=== PATIENT | male | born 1950 | race Caucasian/White ===

== ENCOUNTER 2018-04-27 16:08 | Inpatient (IN) ==
[2018-04-27] MEDS ORDERED: NS 1,000 ML IV ONE (16:42)
[2018-04-27] MEDS ORDERED: ATIVAN IV ONE ×2 (16:43→21:25)
--- NOTE | 2018-04-27 16:57 | Diag Imaging Result Doc PS360 ---
EXAM: CT HEAD W/O CONTRAST INDICATION: STROKE LIKE SYMPTOMS TECHNIQUE: This exam was performed using automated exposure control, adjustment of mA or kV according to patient size, and/or use of iterative reconstruction technique. COMPARISON: 04/29/2017 FINDINGS: There is medial right occipital lobe encephalomalacia that has developed during the interval. There is mild periventricular white matter microangiopathy that is stable. There is no definite acute infarct given the limited sensitivity of CT versus MRI. There is no discrete intracranial mass, mass effect, or intracranial hemorrhage. The surrounding soft tissues and bony structures are essentially unremarkable. IMPRESSION: Chronic appearing changes as described. No evidence of acute pathology by CT. Electronically signed by Cody Diamond 04/27/2018 4:55 PM
[2018-04-27] MEDS ORDERED: DOXYCYCLINE 100 MG in NS 250 ML IV ONE (17:00)
[2018-04-27] MEDS ORDERED: ROCEPHIN 1 GM in NS 50 ML IV ONE (17:00)
[2018-04-27 17:02] LABS: BASO# 0.03 X1000 (0.0-0.2); BASO% 0.1 % (0.0-0.8); HEMATOCRIT 36.2 % (42.0-52.0); HEMOGLOBIN 12.2 g/dL (14.0-18.0); IMM GRAN# 0.37 X1000 (0.0-0.04); IMM GRAN% 1.2 % (0.0-0.5); LYMPH# 0.49 X1000 (1.2-3.4); LYMPH% 1.6 % (20.5-51.1); MCH 32.5 PG (27-31); MCHC 33.7 g/dL (33-37); MCV 96.5 FL (81-99); MONO% 2.6 % (1.7-9.3); MPV 9.6 FL (7.4-10.4); NEUT% 94.5 % (42.2-75.2); PLT 607 X1000 (130-400); RBC 3.75 XMIL (4.7-6.1); RDW 13.2 % (11.5-14.5); WBC 30.99 X1000 (4.8-10.8)
[2018-04-27 17:17] LABS: ESTIMATED GFR > 60
[2018-04-27 17:23] LABS: AGAP 20; ALB/GLOB RATIO 1.1; ALBUMIN 3.4 g/dL (3.5-5.0); ALKALINE PHOSPHATASE 109 U/L (32-122); BUN 43 mg/dL (8-22); CALCIUM 7.9 mg/dL (8.8-10.2); CHLORIDE 86 mmol/L (98-107); CK PROFILE 51 U/L (24-204); COSMO 287; CREATININE 0.8 mg/dL (0.7-1.2); GLUCOSE 136 mg/dL (70-104); GOT 25 U/L (10-34); GPT 15 U/L (10-44); LIPASE 20 U/L (13-60); POTASSIUM 3.5 mmol/L (3.5-5.1); SODIUM 137 mmol/L (136-145); TCO2 31 mmol/L (25-35); TOTAL PROTEIN 6.5 g/dL (6.3-8.3)
[2018-04-27] MEDS ORDERED: NS 2,300 ML IV ONE (17:34)
--- NOTE | 2018-04-27 17:37 | Diag Imaging Result Doc PS360 ---
EXAM: CHEST-1 VIEW INDICATION: ams TECHNIQUE: One view COMPARISON: 05/01/2017 FINDINGS: There is airspace consolidation involving the right lower lung zone indicating pneumonia. The left lung appears clear. There is no discrete pleural fluid collection or pneumothorax. There are stable CABG changes. Cardiomediastinal silhouette and central vasculature are grossly unremarkable, otherwise. IMPRESSION: Right lower lung zone consolidation indicating pneumonia. Electronically signed by Cody Diamond 04/27/2018 5:35 PM
[2018-04-27] MEDS ORDERED: NS 1,300 ML IV ONE (17:43)
[2018-04-27 18:00] LABS: ALLEN TEST YES; BE 8.3 mmoll (-3.0-3.0); BLOOD TYPE ARTERIAL; HCO3-(ACT) 31.2 mmoll (20.0-26.0); O2(CT) 13.5 mL/dL (15.0-23.0); PCO2(98.6) 39 mmHg (35-45); SAMPLE BLOOD; SAO2 89.7 % (95.0-100.0); THB 11.1 g/dL (11.5-17.4); pH(98.6) 7.52 (7.35-7.45)
[2018-04-27 18:02] LABS: MODALITY CANNULA; O2HB 86.5 % (95.0-99.0); PO2(98.6) 49 mmHg (60-100)
[2018-04-27 18:10] LABS: INR 1.02; PROTIME 14.2 Seconds (11.0-16.0)
[2018-04-27] MEDS ORDERED: LABETALOL IV PRN (18:10)
[2018-04-27 18:11] LABS: PTT 29.4 Seconds (22.3-41.8)
--- NOTE | 2018-04-27 18:56 | HISTORY AND PHYSICAL ---
PRIMARY CARE PHYSICIAN: Dr. Stephen Garza. CHIEF COMPLAINT: Altered mental status and severe shortness of breath and frequent falls. HISTORY OF PRESENT ILLNESS: Mr. Mahmood is a 67-year-old male with a history of coronary artery disease, hypertension, opioid dependence, BPH who presented to the ER with a chief complaint of altered mental status and shortness of breath, as per the family. The patient was recently diagnosed with influenza and was treated with Tamiflu. The patient's family reports that the patient continued to decline and started to complain of increasing shortness of breath, productive cough and a poor appetite. The patient has not been eating or drinking very much since the flu diagnosis was made. The patient presented to the ER today hypoxic with a PO2 of 49 on the arterial blood gas reading. A chest x-ray was done in the ER that revealed a right lower lobe pneumonia. In the ER, the patient received fluid resuscitation and blood cultures were obtained, and the patient was given empiric antibiotic therapy. PAST MEDICAL HISTORY: 1. Coronary artery disease. 2. Aortic valve replacement. 3. Tobacco dependence. 4. Paroxysmal atrial fibrillation. 5. Hypertension. 6. COPD. 7. Vitamin D deficiency. 8. BPH. 9. Chronic diastolic CHF. PAST SURGICAL HISTORY: 1. Cervical diskectomy. 2. Cholecystectomy. 3. CABG. 4. Aortic valve replacement. 5. Gastric bypass. SOCIAL HISTORY: The patient lives at home with family. The patient denies any alcohol or illicit drug use. The patient does smoke cigarettes. FAMILY HISTORY: Noncontributory, due to age. ALLERGIES: Morphine. HOME MEDICATIONS: The patient's medication list is not available. We will update the record once it is available. REVIEW OF SYSTEMS: A 12-point review of systems was performed. Please refer to the history of present illness for pertinent positives and negatives. PHYSICAL EXAMINATION: VITAL SIGNS: Temperature 98.3, blood pressure 162/123, heart rate 100, respiratory rate 27, O2 sats 92% on 2 L nasal cannula. GENERAL: This is a chronically ill-appearing elderly male lying in bed in no acute distress. SKIN: Poor skin turgor. No rashes. No lesions. HEAD: Normocephalic, atraumatic. Eyes: Conjunctiva clear, EOMI, PERRLA. NECK: Supple. No JVD. No lymphadenopathy. No carotid bruits. LUNGS: Coarse breath sounds bilaterally. Diminished breath sounds at the bases. HEART: S1, S2 normal. Tachycardic. ABDOMEN: Positive bowel sounds. Soft, nontender, nondistended. EXTREMITIES: No edema. No cyanosis. No calf tenderness. NEUROLOGIC: The patient is lethargic. He is able to move all 4 extremities. He does have a slight tremor. LABS: White blood cell count 30, hemoglobin 12, hematocrit 36, platelets 607,000. INR 1. ABG: pH of 7.52, pCO2 39, PO2 49, bicarb 31, oxyhemoglobin 86. Sodium 137, potassium 3.5, chloride 86, CO2 31, BUN 43, creatinine 0.8, glucose 136, calcium 7.9, magnesium 2.1, total bilirubin 1.1, AST 25, ALT 15, alkaline phosphatase 109. Troponin less than 0.01. Albumin 3.4, lipase 20. Head CT shows chronic changes. Chest x-ray shows right lower lung pneumonia. ASSESSMENT AND PLAN: 1. Acute hypoxemic respiratory failure. This is likely secondary to pneumonia. Blood cultures have been obtained and a sputum Gram stain and culture has been ordered. We will start the patient on broad-spectrum antibiotics, bronchodilator therapy, as well as supplemental oxygen. Will consult with the leak patcher for further recommendations. 2. Pneumonia. The patient will be started on broad-spectrum antibiotics. Blood cultures have already been obtained. The sputum culture is currently pending. Bronchodilator therapy will be initiated. 3. COPD. Bronchodilator therapy and supplemental oxygen have been ordered. 4. Accelerated hypertension. We will start the patient on p.r.n. IV labetalol and monitor the blood pressure closely. 5. Metabolic encephalopathy. This is likely secondary to the patient's underlying infection. The head CT was negative. We will monitor the patient's mental status closely. 6. Leukocytosis. Likely secondary to the underlying pneumonia. Continue with antibiotic therapy. 7. Paroxysmal atrial fibrillation. We will monitor the patient's heart rate. If the patient goes into atrial fibrillation with RVR, we will likely start a Cardizem drip. The patient is on Eliquis. Will start full-dose Lovenox. 8. GI prophylaxis. Will start the patient on IV Protonix. 9. DVT prophylaxis. The patient will be started on full-dose Lovenox due to the atrial fibrillation. 10. Disposition. The patient is critically ill. The patient's family was updated on the patient's medical condition at the bedside. cc: Pam Chavez MD MTDD
[2018-04-27] MEDS ORDERED: OFIRMEV 1000 MG/ISOTONIC SOLN 1,000 MG/100 ML BOTTLE IV ONE (19:54)
[2018-04-27] MEDS: MAXIPIME 2 GM in NS 100 ML IV SCH (20:11)
[2018-04-27] MEDS: ZYVOX 600 MG/D5W 600 MG/300 ML IVPB IV SCH (20:22)
[2018-04-27 20:38] LABS: URINE SOURCE CATH
[2018-04-27] MEDS ORDERED: CARDIZEM 125 MG in NS 100 ML IV SCH (20:45)
[2018-04-27 20:57] LABS: BILIRUBIN URINE NEGATIVE (NEGATIVE); BLOOD URINE SMALL (NEGATIVE); COLOR YELLOW; GLUCOSE URINE NEGATIVE (NEGATIVE); KETONE URINE 10 mg/dL (NEGATIVE); LEUKOCYTES URINE NEGATIVE (NEGATIVE); NITRITE URINE NEGATIVE (NEGATIVE); PROTEIN URINE NEGATIVE (NEGATIVE); SP GRAVITY URINE 1.007; TURBIDITY URINE CLEAR (CLEAR); UROBILINOGEN URINE 2 mg/dL (NORMAL)
[2018-04-27 20:58] LABS: UR EPITHELIAL CELLS <10 /HPF (<10); URINE BACTERIA NEGATIVE /HPF; URINE RBC <10 /HPF (<10); URINE WBC <10 /HPF (<10)
[2018-04-27] MEDS: XOPENEX NEB INH SCH (21:06)
[2018-04-27] MEDS: NS 1,000 ML IV SCH (21:12)
[2018-04-27] MEDS: HUMULIN R SUBQ SCH (21:15)
[2018-04-28] MEDS ORDERED: TYLENOL PR PRN (02:00)
[2018-04-28] MEDS: NS 1,000 ML IV SCH ×3 (02:43→14:51)
[2018-04-28] MEDS: XOPENEX NEB INH SCH ×4 (02:53→21:37)
[2018-04-28 03:24] LABS: CK INDEX 0.3 (0.0-2.5); CK-MB 2.03 ng/mL (0.0-5.0)
[2018-04-28 04:51] LABS: ALLEN TEST YES; BE 9.4 mmoll (-3.0-3.0); BLOOD TYPE ARTERIAL; HCO3-(ACT) 32.2 mmoll (20.0-26.0); METHB 1.9 % (0.0-1.5); O2(CT) 14.2 mL/dL (15.0-23.0); O2HB 93.8 % (95.0-99.0); PCO2(98.6) 43 mmHg (35-45); PO2(98.6) 79 mmHg (60-100); SAMPLE BLOOD; SAO2 96.6 % (95.0-100.0); THB 10.7 g/dL (11.5-17.4)
[2018-04-28 05:00] LABS: MODALITY CANNULA
[2018-04-28] MEDS: MAXIPIME 2 GM in NS 100 ML IV SCH (05:37)
[2018-04-28] MEDS: SODIUM CHLORIDE 0.9% INJ SCH (06:24)
[2018-04-28] MEDS: PROTONIX IV SCH (06:24)
[2018-04-28] MEDS: HUMULIN R SUBQ SCH ×4 (06:33→22:02)
--- NOTE | 2018-04-28 06:48 | Diag Imaging Result Doc PS360 ---
EXAM: CHEST-PORTABLE HISTORY: pneumonia TECHNIQUE: Portable chest single view COMPARISON: 04/27/2018 FINDINGS: There are persistent infiltrates in the lower right lung. These are fairly similar to the prior exam. No cardiomegaly. Mild pulmonary edema. No pleural effusions identified. IMPRESSION: No significant interval change. Electronically signed by Jozef Saunders 04/28/2018 6:46 AM
--- NOTE | 2018-04-28 07:23 | EKG Report ---
Test Performed on : 04/27/2018 4:29:04 PM Test Reason : ams Blood Pressure : / mmHG Vent. Rate : 132 BPM Atrial Rate : 258 BPM P-R Int : 000 ms QRS Dur : 092 ms QT Int : 304 ms P-R-T Axes : 083 053 055 degrees QTc Int : 450 ms Atrial flutter. with variable AV block. with premature ventricular or aberrantly conducted complexes. Nonspecific ST and T wave abnormality Abnormal ECG When compared with ECG of 29-APR-2017 09:50, Atrial flutter. has replaced Sinus rhythm. Vent. rate has increased BY 54 BPM QRS duration has decreased ST elevation now present in Lateral leads Unconfirmed Result
[2018-04-28] MEDS: ZYVOX 600 MG/D5W 600 MG/300 ML IVPB IV SCH (07:31)
--- NOTE | 2018-04-28 07:36 | EKG Report ---
Test Performed on : 04/28/2018 07:28:47 AM Test Reason : tachycardia Blood Pressure : / mmHG Vent. Rate : 098 BPM Atrial Rate : 098 BPM P-R Int : 148 ms QRS Dur : 116 ms QT Int : 424 ms P-R-T Axes : 071 065 081 degrees QTc Int : 541 ms Sinus rhythm. with premature supraventricular complexes. Possible Left atrial enlargement Nonspecific ST abnormality Prolonged QT Abnormal ECG When compared with ECG of 27-APR-2018 16:29, (Unconfirmed) Significant changes have occurred Unconfirmed Result
[2018-04-28] MEDS: OFIRMEV 1000 MG/ISOTONIC SOLN 1,000 MG/100 ML BOTTLE IV PRN ×3 (08:00→21:49)
[2018-04-28 08:37] LABS: HEMOGLOBIN A1C 5.4 % (4.8-6.0)
[2018-04-28 08:57] LABS: CK INDEX 0.2 (0.0-2.5); CK-MB 1.26 ng/mL (0.0-5.0)
[2018-04-28] MEDS ORDERED: LOVENOX SUBQ SCH (09:00)
[2018-04-28] MEDS: LOVENOX SUBQ SCH ×2 (09:04→21:49)
[2018-04-28] MEDS ORDERED: VANCOMYCIN IV PER PHARMACY MISC SCH (10:00)
[2018-04-28] MEDS: ROCEPHIN 2 GM in NS 50 ML IV SCH ×2 (10:48→21:49)
[2018-04-28] MEDS ORDERED: VANCOMYCIN 2,150 MG in NS 500 ML IV ONE (13:00)
--- NOTE | 2018-04-28 14:47 | INFECTIOUS DISEASE CONSULT REP ---
DATE: 04/28/2018 CONCLUSION: The patient is admitted to the hospital. He has a right lower lobe pneumonia with an associated bacteremia, which is growing gram-positive cocci. I suspect the patient could have a pneumococcal pneumonia or possibly staphylococcal. The patient's brother told me that the patient ever since he had his coronary artery bypass grafting and valve replacement about a year ago has been extremely weak, and because of that I am ordering a cortisol level and thyroid test. Also, I am ordering immunoglobulin levels in case the patient has an immunoglobulin deficiency which would predispose him to getting a pneumonia with bacteremia. Probably the patient's biggest reason for getting his pneumonia is that he has been a heavy smoker for many years. RECOMMENDATIONS: I have discontinued cefepime and Zyvox, and instead I put the patient on IV vancomycin and Rocephin. Also, I have ordered thyroxine, TSH level, cortisol level and immunoglobulin levels. The patient's family told me that approximately a week ago the patient had generalized pain and weakness. He also was anorectic and had hiccups. Yesterday, he was found unconscious on the floor and it is uncertain as to how long he was unconscious. His laboratory studies show a CBC with a white count of 30,990, hemoglobin 12.2, and platelet count 607,000. The patient's blood gases show a pH of 7.5 PO2 of 79, and a pCO2 of 43. Creatinine is 0.8. GFR is greater than 60. Chest x-ray shows a right lower lobe infiltrate. The patient has 2 separate blood cultures growing gram-positive cocci. PAST MEDICAL HISTORY/REVIEW OF SYSTEMS: Eyes and ears: He does not have any problems seeing or hearing. Neck: He has had pains in his neck and has had surgeries on his neck. Respiratory: The patient gets short of breath with exertion. Cardiac: The patient has had coronary artery bypass grafting and also aortic valve replacement. He was not having chest pain according to his 's information. GI: The is not aware if the patient was having any trouble passing his bowel movement. He did in the last week as mentioned above have anorexia. Genitourinary: The told me that the patient had difficulty urinating. Extremities: The patient had leg edema. Integument: The patient's did not notice any rashes on the patient. PREVIOUS HOSPITALIZATIONS AND OPERATIONS: He has had coronary artery bypass grafting and aortic valve replacement. He has also had cervical spine surgeries with implantation of some type of foreign material. Initially, it was metal, but since then, there is another material that has been put in. MEDICAL DISEASES: Positive for coronary artery disease, aortic valve disease, COPD, and the patient is a heavy cigarette smoker. Infectious Disease history negative for pneumonia and UTI. FAMILY HISTORY: Positive for diabetes mellitus, cancer, aortic valve replacement in 1 family member, coronary artery disease and stroke. SOCIAL HISTORY: [place] He is . He is a heavy smoker. He does not abuse drugs. He does not drink alcoholic beverages. The patient had a dog as a pet, but about 6 months ago the dog disappeared. ALLERGIES: The patient is allergic to morphine. HOME MEDICATIONS: Include Eliquis, Bumex, Tegretol, Proscar, Lasix, metolazone, omeprazole, Zofran, oxycodone and tramadol. PHYSICAL EXAMINATION: Vital Signs: Temperature is 102.4 degrees, pulse 95, respirations 29, blood pressure 118/52. General: This is an ill-appearing elderly male. He is lying in bed and he is shaking and it is difficult to see if he is having any pain or not. He appears to definitely have a decreased level of consciousness. The patient did not respond to verbal stimuli, and he did not track with his eyes. Neck: No stiffness. Lungs: Clear to auscultation. Cardiovascular: Heart rate was regular. Abdomen: Soft and nontender. Neurologic: The patient as mentioned above is having shaking spells in his arms. The patient did respond to request that I made such as closing his eyes and moving his extremities, but I did not notice that he tracked with his eyes. Integument: No rash noted. Thank you for the consult. cc: Stephen Kaminski MD [facility]
--- NOTE | 2018-04-28 18:49 | CONSULTATION ---
DATE OF CONSULTATION: 04/28/2018 Mr. Mahmood is 67 years old and he was admitted with shortness of breath, evidence of pneumonia, WBC 30,000, hypoxia, fever. There is report of altered mental state and falling. He is not able to provide history. History from his attentive at the bedside is that he has been forgetful for 2 or 3 years, gradually more prominent. He was temporarily worse mentally about a year ago when he was hospitalized with stupor that resolved quickly after Narcan administration. There might have been previous hypoxia associated with transient increased cognitive impairment. reports she has not seen him be quite as unresponsive and as tremulous in the past as he is now. reports no previous diagnosed stroke and no clinical history of stroke, specifically no sudden vision deficit. Noncontrast CT this admission shows old right occipital encephalomalacia. Brain MRI done in 2018 showed similar findings. He has chronic pain problems. His home medicine list as recorded in this hospital chart includes carbamazepine, baclofen, cyclobenzaprine, methocarbamol, metaxalone, oxycodone, tramadol, several others. reports patient supervises medication at home himself and she cannot verify how, when, if he takes his medicine doses. She reports he has "run out early" with pain medicines in the past. She denies ethanol use, illicit drug use, intentional drug intoxication. On exam, Mr. Mahmood is supine, breathing rapidly, not attentive to me. He has increased tone throughout with tremulousness and some shaking in the right arm more than the left but no clonic activity. This is not asterixis. Sometimes this is consistent with myoclonus. He did not regard me or communicate with me. He did not follow simple commands. There is good lateral eye movement with passive head turning. Pupils are both small and both react slightly to bright light. Corneal reflex is present bilaterally. He sometimes has a grimace and facial motility appears symmetric. Plantar response is silent bilaterally. Reflexes are absent at the ankles bilaterally. He was not attentive to sensory testing over the limbs. Head is unremarkable. Neck shows rigidity typical of musculoskeletal degenerative changes and not typical of meningismus. IMPRESSION: 1. Current stupor or obtundation, global encephalopathy, uncertain etiology but likely multifactorial with contributions from his hypoxia and possibly medication effects. There is clear history of baseline cognitive impairment which predisposes him to deeper and more protracted encephalopathy with any toxic or metabolic disturbance. The tremulousness I see now is not typical of clonic activity or seizure. There could be some dystonic and dyskinetic features and we could suspect that more likely if we had history of antipsychotic use or other dopamine soraya use. 2. Polypharmacy and uncertain home medicines. cannot confirm his medicines. The current list contains cyclobenzaprine, methocarbamol, metaxalone and baclofen, and I suspect he does not take all 4 of those. Current list includes oxycodone and we do not have urine drug screen this admission, but his current appearance is not typical of opiate withdrawal. 3. With his baseline cognitive impairment, when his acute medical problems are settled, we might consider cholinesterase inhibitor trial. 4. There is imaging evidence of old right occipital encephalomalacia, presumed old ischemic infarction. He is not attentive to visual field testing. He might have left visual field deficit that was not recognized when this was acute. There is history of some head injuries in the remote past and not impossible the imaging findings are related to prior brain trauma rather than old ischemic infarction. I do not have any urgent suggestion. We might consider EEG later, but I do not think that would exchange consultant right now.I discussed my thoughts thoroughly and frankly with at the bedside. I have suggested to her that, if and when he is home again, she be prepared to provide close supervision of medicines. We can follow him through the weekend and make plans depending on his appearance Tuesday when Neurology is back on rounds. Thanks for asking us to see Mr. Mahmood. cc: MD VIOLET Cabrales III
--- NOTE | 2018-04-28 18:51 | PROGRESS NOTE ---
DATE: 04/28/2018 SUBJECTIVE: The patient is minimally responsive. He does not follow commands. OBJECTIVE: Vital signs: Temperature 99.7 degrees, blood pressure 144/116, heart rate 95, respirations 15, O2 saturation 97% on 3 L nasal cannula, intake 1.5 L, output 2 L. Chest x-ray shows persistent infiltrates in the right lower lung. ASSESSMENT AND PLAN: 1. Acute hypoxemic respiratory failure. Likely secondary to pneumonia. Continue with antibiotics, bronchodilator therapy and supplemental oxygen. Further management as per ID and Pulmonary. 2. Pneumonia. Continue with broad-spectrum antibiotic coverage as directed by Dr. Kaminski. 3. Metabolic encephalopathy. This is likely secondary to the patient's underlying infection. We will continue to monitor the patient closely for improvement. 4. Coronary artery disease. Aware. 5. Nutrition. The patient is currently NPO because he is not awake enough to eat. We may need to consider starting either Clinimix or NG tube feeds. 6. Paroxysmal atrial fibrillation. Continue with labetalol as needed. 7. Chronic obstructive pulmonary disease. Continue with bronchodilator therapy. 8. Deep vein thrombosis prophylaxis. Continue on Lovenox. 9. Disposition. The patient is critically ill with a high risk of mortality. cc: Pam Chavez MD
--- NOTE | 2018-04-28 21:40 | CONSULTATION ---
DATE OF CONSULTATION: 04/28/2018 REQUESTING PROVIDER: Pam Chavez MD REASON FOR CONSULTATION: Pneumonia. HISTORY OF PRESENT ILLNESS: This is a 67-year-old male with medical history of COPD with ongoing tobacco use, chronic diastolic congestive heart failure, coronary artery disease, aortic valve stenosis, paroxysmal atrial fibrillation, hypertension, hyperlipidemia, vitamin D deficiency, benign prostatic hyperplasia and chronic pain, on narcotic therapy. He presented to the ER yesterday afternoon with altered mental status and severe respiratory distress. Initial workup in the ER revealed a right lower lobe pneumonia, significant leukocytosis and acute hypoxemic respiratory failure. He has been admitted to the ICU for further evaluation and management. At the time of my examination, the patient is lying in bed on a cooler. He apparently had a fever overnight and he has been on a cooler for 3 hours. His wrists are restrained bilaterally. His eyes are half open, but he does not respond to verbal stimuli. The patient's and brother are at the bedside. They report the patient had a flu last week. Since then he lost his appetite. He has dry heaving at times. He started shortness of breath 2 days ago and right upper extremity tremor yesterday afternoon. Yesterday his daughter found him unconscious at home. They called 911 and he was sent to the ER via EMS. PAST MEDICAL AND SURGICAL HISTORY: 1. COPD with ongoing tobacco use, not taking any inhaler at home. 2. Chronic diastolic congestive heart failure. 3. Coronary artery disease, status post coronary artery bypass grafting. 4. Aortic valve stenosis, status post aortic valve replacement with tissue valve. 5. Paroxysmal atrial fibrillation. 6. Hypertension. 7. Hyperlipidemia. 8. Vitamin D deficiency. 9. Benign prostatic hyperplasia. 10. Chronic pain, on narcotic therapy. 11. Opioid dependence. 12. Cervical diskectomy. 13. Cholecystectomy. 14. Gastric bypass surgery in 2000. SOCIAL HISTORY: The patient is and lives at home with family. Per his and his brother's report, the patient is a heavy smoker and smokes maximally up to 3 packs per day for more than 55 years. He has no history of alcohol or illicit drug use, but apparently there are issues with abuse of his narcotics based on the e-chart. FAMILY HISTORY: The patient's father had diabetes and bladder cancer. ALLERGIES: Morphine. REVIEW OF SYSTEMS: Difficult to be obtained. PHYSICAL EXAMINATION: Vital signs: Temperature 102.6 degrees, blood pressure 118/52, pulse 94, respiratory rate 21, oxygen saturation 100% on nasal cannula at 3 L. General: Chronically ill appearing, malnourished. He has some right upper extremity tremor. HEENT: Atraumatic. Trachea midline. Mucosa pink and slightly dry. Respiratory: Even, unlabored. Lung expansion equal bilaterally. Clear to auscultation. Cardiovascular: Regular rate and rhythm. Gastrointestinal: Bowel sounds present in all 4 quadrants. Soft and nondistended. Extremities: No pedal edema. No cyanosis. No clubbing. Neurologic: Unconscious. Eyes half open, but no eye tracking. Unresponsive to verbal stimuli. Not following commands. DIAGNOSTIC DATA: Chest x-ray showed persistent infiltrates in the lower right lung. Mild pulmonary edema. LABORATORY DATA: Creatine kinase 706. ProBNP 4918. ABG pH 7.50, pCO2 is 43, pO2 is 79, HCO3 is 32.2, base excess 9.4 and oxyhemoglobin 93.8. ASSESSMENT AND PLAN: This is a 67-year-old male with a medical history of chronic obstructive pulmonary disease with ongoing tobacco use, chronic diastolic congestive heart failure, coronary artery disease, aortic valve stenosis, paroxysmal atrial fibrillation, hypertension, hyperlipidemia, vitamin D deficiency, benign prostatic hyperplasia and chronic pain, on narcotic therapy. He has been admitted to the intensive care unit since yesterday with acute hypoxemic respiratory failure, right lower lobe pneumonia with associated bacteremia and metabolic encephalopathy. 1. Acute hypoxemic respiratory failure. Continue supplemental oxygen and consider bilevel positive airway pressure if needed. Continue bronchodilators. We will follow up with arterial blood gas and chest x-ray. 2. Right lower lobe pneumonia with associated bacteremia. Continue ceftriaxone and vancomycin per Dr. Kaminski. Follow up with chest x-ray, CBC and CMP. Follow up with blood culture and sputum culture. 3. Metabolic encephalopathy. CT in the emergency room showed no evidence of acute pathology. 4. Chronic obstructive pulmonary disease with ongoing tobacco use. No acute exacerbation. Continue bronchodilators and supplemental oxygen as needed. 5. Continue gastrointestinal and deep venous thrombosis prophylaxis. 6. Additional recommendations pending hospital course. Thank you for the courtesy of this consult. Dictated by KAREN Uribe for Carol Ann Dalton MD cc: KAREN Uribe I. Krystle, MD [facility]
[2018-04-29] MEDS: NS 1,000 ML IV SCH (01:58)
[2018-04-29] MEDS: XOPENEX NEB INH SCH ×4 (03:35→21:00)
[2018-04-29] MEDS: OFIRMEV 1000 MG/ISOTONIC SOLN 1,000 MG/100 ML BOTTLE IV PRN ×3 (04:21→17:37)
[2018-04-29 04:33] LABS: ALLEN TEST YES; BE 7.6 mmoll (-3.0-3.0); BLOOD TYPE ARTERIAL; HCO3-(ACT) 30.8 mmoll (20.0-26.0); METHB 1.5 % (0.0-1.5); O2(CT) 15.9 mL/dL (15.0-23.0); O2HB 94.1 % (95.0-99.0); PCO2(98.6) 38 mmHg (35-45); PO2(98.6) 72 mmHg (60-100); SAMPLE BLOOD; SAO2 96.2 % (95.0-100.0); pH(98.6) 7.52 (7.35-7.45)
[2018-04-29 04:38] LABS: MODALITY CANNULA
[2018-04-29 05:09] LABS: BASO# 0.03 X1000 (0.0-0.2); BASO% 0.1 % (0.0-0.8); HEMATOCRIT 33.7 % (42.0-52.0); HEMOGLOBIN 10.9 g/dL (14.0-18.0); IMM GRAN# 0.53 X1000 (0.0-0.04); IMM GRAN% 1.2 % (0.0-0.5); LYMPH# 1.09 X1000 (1.2-3.4); LYMPH% 2.4 % (20.5-51.1); MCH 31.7 PG (27-31); MCHC 32.3 g/dL (33-37); MONO# 2.21 X1000 (0.11-0.59); MONO% 4.9 % (1.7-9.3); MPV 9.9 FL (7.4-10.4); NEUT# 41.48 X1000 (1.4-6.5); NEUT% 91.4 % (42.2-75.2); PLT 579 X1000 (130-400); RBC 3.44 XMIL (4.7-6.1); RDW 13.9 % (11.5-14.5); WBC 45.34 X1000 (4.8-10.8)
[2018-04-29 05:22] LABS: LYMPHS 2 % (21-51); MONO 3 % (1-9); SEGS 95 % (42-75)
[2018-04-29 05:33] LABS: AGAP 19; ALB/GLOB RATIO 0.7; ALBUMIN 2.7 g/dL (3.5-5.0); ALKALINE PHOSPHATASE 131 U/L (32-122); BUN 15 mg/dL (8-22); CALCIUM 8.8 mg/dL (8.8-10.2); CHLORIDE 102 mmol/L (98-107); COSMO 294; CREATININE 0.4 mg/dL (0.7-1.2); ESTIMATED GFR > 60; GLUCOSE 117 mg/dL (70-104); GOT 29 U/L (10-34); GPT 14 U/L (10-44); SODIUM 147 mmol/L (136-145); TCO2 26 mmol/L (25-35); TOTAL BILIRUBIN 0.36 mg/dL (0.20-1.00); TOTAL PROTEIN 6.7 g/dL (6.3-8.3)
[2018-04-29 05:50] LABS: POTASSIUM 2.4 mmol/L (3.5-5.1)
[2018-04-29] MEDS ORDERED: POTASSIUM CHLORIDE 60 MEQ in NS 500 ML IV ONE ×2 (05:54→17:04)
[2018-04-29] MEDS: VANCOMYCIN 1,600 MG in NS 250 ML IV SCH (06:22)
[2018-04-29] MEDS: HUMULIN R SUBQ SCH ×4 (06:22→20:55)
[2018-04-29] MEDS: PROTONIX IV SCH (06:22)
--- NOTE | 2018-04-29 07:16 | Diag Imaging Result Doc PS360 ---
EXAM: CHEST-1 VIEW 04/29/2018 HISTORY: SOB TECHNIQUE: AP portable at 0515 COMMENT: There is ill-defined alveolar opacity in the right base and to a lesser extent over the left hemidiaphragm. Compared to 04/28/2017 there may be slight improvement. IMPRESSION: Slightly improved pulmonary edema and/or pneumonia. Electronically signed by Tomás Ro 04/29/2018 7:13 AM
[2018-04-29 07:54] LABS: URINE SOURCE CATH
[2018-04-29 07:59] LABS: BILIRUBIN URINE NEGATIVE (NEGATIVE); BLOOD URINE SMALL (NEGATIVE); COLOR YELLOW; GLUCOSE URINE NEGATIVE (NEGATIVE); KETONE URINE 20 mg/dL (NEGATIVE); LEUKOCYTES URINE NEGATIVE (NEGATIVE); NITRITE URINE NEGATIVE (NEGATIVE); PROTEIN URINE 50 mg/dL (NEGATIVE); SP GRAVITY URINE 1.016; TURBIDITY URINE CLEAR (CLEAR); UROBILINOGEN URINE NORMAL (NORMAL)
[2018-04-29 08:00] LABS: UR EPITHELIAL CELLS <10 /HPF (<10); URINE BACTERIA NEGATIVE /HPF
[2018-04-29] MEDS: LOVENOX SUBQ SCH ×2 (09:47→20:54)
[2018-04-29] MEDS: ROCEPHIN 2 GM in NS 50 ML IV SCH ×2 (09:47→21:01)
--- NOTE | 2018-04-29 09:55 | Diag Imaging Result Doc PS360 ---
EXAM: KUB ABDOMEN 04/29/2018 HISTORY: NG placement TECHNIQUE: Upright portable chest and abdomen for NG tube placement COMMENT: The NG tube tip is not clearly identified and may be looped in the esophagus. It is clearly not seen in the stomach. IMPRESSION: NG tube looped in the esophagus. Electronically signed by Tomás Ro 04/29/2018 9:52 AM
--- NOTE | 2018-04-29 20:27 | PROGRESS NOTE ---
DATE: 04/29/2018 SUBJECTIVE: The patient is resting in bed. Family is present at the bedside. He is on chrome blanket due to persistent fever. OBJECTIVE: Vital Signs: T-max 101.7. Blood pressure 120/52. Heart rate 97, respiratory rate 12. O2 saturations 99% on 3 L nasal cannula. Urine output is 2.6 L. General: This is a chronically ill-appearing, elderly male, lying in bed in no acute distress. HEENT: Normocephalic, atraumatic. Heart: S1, S2 normal. Tachycardic. Lungs: Coarse breath sounds bilateral. Abdomen: Positive bowel sounds. Soft, nontender, nondistended. Extremities: No edema. No cyanosis. The extremities are cool to touch. Neurologic: The patient is awake, but does not follow commands. LABS: White blood cell count 45, hemoglobin 10, hematocrit 33, platelets 579. ABGs 7.52, pCO2 of 38, pO2 of 72, bicarb 40. Sodium 147, potassium 2.7, chloride 102, CO2 of 26, BUN 15, creatinine 0.4 glucose 117. Alkaline phosphatase 131. ProBNP 6000. Chest x-ray shows improved pulmonary edema and/or pneumonia. ASSESSMENT AND PLAN: 1. Acute hypoxemic respiratory failure. Likely secondary to pneumonia. We will continue to treat the patient's pneumonia. 2. Sepsis secondary to pneumonia. Continue with IV antibiotics. The patient is not bacteremic. 3. Bacteremia. The blood cultures are growing gram-positive cocci. Continue on vancomycin as directed by Dr. Kaminski. 4. Metabolic encephalopathy. This is likely secondary to the patient's underlying infection. Neurology is following. The patient may require an MRI, if there is no improvement. 5. Coronary artery disease. Aware. 6. Leukocytosis. Worse today. Continue with antibiotic therapy. 7. Nutrition. Attempts were made to place a nasogastric tube at the bedside. However, the tube kept looping in the esophagus. The patient may require NG tube placement under fluoroscopy on Tuesday. 8. Paroxysmal atrial fibrillation. The patient's heart rate has been fluctuating between the 70s to the 130s. We will consult Cardiology. 9. Chronic obstructive pulmonary disease. Continue with bronchodilator therapy. 10. Deep vein thrombosis prophylaxis. Continue on Lovenox. DISPOSITION: The patient's family has decided to make the patient a Do Not Resuscitate level 1. The patient remains critically ill with a high risk of mortality. cc: Pam Chavez MD
[2018-04-30] MEDS: VANCOMYCIN 1,600 MG in NS 250 ML IV SCH (00:44)
[2018-04-30] MEDS: OFIRMEV 1000 MG/ISOTONIC SOLN 1,000 MG/100 ML BOTTLE IV PRN ×4 (00:44→21:16)
[2018-04-30 01:32] LABS: AGAP 16; ALBUMIN 2.8 g/dL (3.5-5.0); BUN 15 mg/dL (8-22); CHLORIDE 109 mmol/L (98-107); COSMO 309; CREATININE 0.7 mg/dL (0.7-1.2); ESTIMATED GFR > 60; GLUCOSE 107 mg/dL (70-104); MAGNESIUM 2.4 mg/dL (1.5-2.7); PHOSPHORUS 1.7 mg/dL (2.7-4.5); POTASSIUM 2.6 mmol/L (3.5-5.1); SODIUM 155 mmol/L (136-145); TCO2 30 mmol/L (25-35)
[2018-04-30] MEDS: XOPENEX NEB INH SCH ×4 (03:17→21:30)
[2018-04-30] MEDS ORDERED: POTASSIUM CHLORIDE 60 MEQ in NS 500 ML IV ONE ×2 (04:25→12:41)
[2018-04-30] MEDS ORDERED: POTASSIUM CHLORIDE 60 MEQ in NS 500 ML IV SCH (04:30)
[2018-04-30 05:03] LABS: BASO# 0.02 X1000 (0.0-0.2); BASO% 0.1 % (0.0-0.8); HEMATOCRIT 29.5 % (42.0-52.0); HEMOGLOBIN 9.6 g/dL (14.0-18.0); IMM GRAN# 0.36 X1000 (0.0-0.04); LYMPH# 1.38 X1000 (1.2-3.4); MCH 32.3 PG (27-31); MCHC 32.5 g/dL (33-37); MCV 99.3 FL (81-99); MONO# 1.55 X1000 (0.11-0.59); MONO% 4.5 % (1.7-9.3); MPV 9.9 FL (7.4-10.4); NEUT# 31.42 X1000 (1.4-6.5); NEUT% 90.4 % (42.2-75.2); PLT 551 X1000 (130-400); RBC 2.97 XMIL (4.7-6.1); RDW 14.1 % (11.5-14.5); WBC 34.73 X1000 (4.8-10.8)
[2018-04-30] MEDS: POTASSIUM CHLORIDE 10 MEQ in D5W 1,000 ML IV SCH ×3 (05:05→23:51)
[2018-04-30 05:25] LABS: ALLEN TEST YES; BE 7.5 mmoll (-3.0-3.0); BLOOD TYPE ARTERIAL; HCO3-(ACT) 30.8 mmoll (20.0-26.0); METHB 1.5 % (0.0-1.5); O2(CT) 13.7 mL/dL (15.0-23.0); O2HB 95.7 % (95.0-99.0); PCO2(98.6) 39 mmHg (35-45); PO2(98.6) 94 mmHg (60-100); SAMPLE BLOOD; SAO2 98.4 % (95.0-100.0); THB 10.1 g/dL (11.5-17.4); pH(98.6) 7.51 (7.35-7.45)
[2018-04-30 05:25] LABS: AGAP 15; ALB/GLOB RATIO 0.7; ALBUMIN 2.3 g/dL (3.5-5.0); ALKALINE PHOSPHATASE 79 U/L (32-122); BUN 16 mg/dL (8-22); CALCIUM 8.4 mg/dL (8.8-10.2); CHLORIDE 113 mmol/L (98-107); COSMO 309; CREATININE 0.6 mg/dL (0.7-1.2); ESTIMATED GFR > 60; GLUCOSE 115 mg/dL (70-104); GOT 23 U/L (10-34); GPT 13 U/L (10-44); PHOSPHORUS 2.1 mg/dL (2.7-4.5); SODIUM 155 mmol/L (136-145); TCO2 27 mmol/L (25-35); TOTAL BILIRUBIN 0.25 mg/dL (0.20-1.00); TOTAL PROTEIN 5.6 g/dL (6.3-8.3)
[2018-04-30 05:27] LABS: MODALITY CANNULA
[2018-04-30 05:32] LABS: POTASSIUM 2.4 mmol/L (3.5-5.1)
[2018-04-30] MEDS: PROTONIX IV SCH (06:42)
[2018-04-30] MEDS: HUMULIN R SUBQ SCH ×4 (06:43→21:16)
[2018-04-30 07:10] LABS: LYMPHS 4 % (21-51); SEGS 96 % (42-75)
--- NOTE | 2018-04-30 07:10 | Diag Imaging Result Doc PS360 ---
EXAM: CHEST-1 VIEW 04/30/2018 HISTORY: SOB TECHNIQUE: AP portable at 0518 COMMENT: There is increasing alveolar opacity in the lung bases particularly on the left compared to 04/29/2018. IMPRESSION: Worsening pulmonary edema plus minus pneumonia. Electronically signed by Tomás Ro 04/30/2018 7:07 AM
[2018-04-30] MEDS: LOVENOX SUBQ SCH ×2 (08:05→21:16)
[2018-04-30] MEDS ORDERED: ALBUMIN 25% IV ONE (08:22)
[2018-04-30] MEDS: DILAUDID IV PRN ×2 (08:35→14:50)
[2018-04-30] MEDS: ROCEPHIN 2 GM in NS 50 ML IV SCH ×2 (10:57→21:15)
[2018-04-30 12:17] LABS: AGAP 12; BUN 16 mg/dL (8-22); CALCIUM 8.3 mg/dL (8.8-10.2); CHLORIDE 114 mmol/L (98-107); COSMO 311; CREATININE 0.6 mg/dL (0.7-1.2); ESTIMATED GFR > 60; GLUCOSE 145 mg/dL (70-104); POTASSIUM 2.7 mmol/L (3.5-5.1); SODIUM 155 mmol/L (136-145); TCO2 29 mmol/L (25-35)
[2018-04-30 17:41] LABS: MAGNESIUM 2.4 mg/dL (1.5-2.7); PHOSPHORUS 1.8 mg/dL (2.7-4.5)
--- NOTE | 2018-04-30 19:13 | PROGRESS NOTE ---
DATE: 04/30/2018 SUBJECTIVE: The patient is awake. He does follow some commands. OBJECTIVE: Vital Signs: Temperature 99 degrees, blood pressure 111/64, heart rate 78, respirations 22. O2 saturations 99% on 3 L nasal cannula. Intake 2.7 L. Output 1.6 L. General: This is an elderly male lying in bed in no acute distress. Heart: S1, S2 normal. Regular rate and rhythm. Lungs: Coarse breath sounds bilaterally. Abdomen: Positive bowel sounds. Soft, nontender, nondistended. Extremities: No edema. No cyanosis. Neurologic: The patient is awake but is not talking at this time. LABORATORY DATA: White blood cell count 34, hemoglobin 9.6, hematocrit 29, platelets 551,000. Sodium 155, potassium 2.7, chloride 114, CO2 of 29, BUN 16, creatinine 0.6, glucose 145, phosphorus 1.8, albumin 2.8. Chest x-ray, worsening pulmonary edema and pneumonia. ASSESSMENT AND PLAN: 1. Acute hypoxemic respiratory failure. Multifactorial. Continue to treat the underlying issues. 2. Sepsis secondary to pneumonia. Continue with antibiotic therapy. 3. Bacteremia secondary to Streptococcus pneumoniae. Continue with antibiotic therapy as directed by Dr. Kaminski. 4. Metabolic encephalopathy. Continue to treat the underlying infection. We will also order an MRI to be done tomorrow. 5. Hypernatremia. Continue with D5W and monitor for improvement. 6. Severe hypokalemia. We will continue to replace the patient's potassium. Also the IV fluid has potassium in it. 7. Paroxysmal atrial fibrillation. The patient is rate controlled. Continue on full-dose Lovenox. 8. Nutrition. An NG tube was unable to be placed at the bedside. The patient will likely require it to be placed under fluoroscopy. 9. Coronary artery disease. Aware. 10. Chronic obstructive pulmonary disease. Continue with bronchodilator therapy. 11. Disposition. The patient is a DNR level 1. The patient remains critically ill with a high risk of mortality. cc: Pam Chavez MD [facility]
[2018-04-30 20:32] LABS: MAGNESIUM 2.3 mg/dL (1.5-2.7); PHOSPHORUS 1.5 mg/dL (2.7-4.5)
[2018-04-30] MEDS: VANCOMYCIN 1,850 MG in NS 500 ML IV SCH (21:16)
[2018-04-30] MEDS: POTASSIUM CHLORIDE 20 MEQ/SWI 20 MEQ/100 ML IVPB IV SCH (23:51)
[2018-05-01] MEDS: POTASSIUM CHLORIDE 20 MEQ/SWI 20 MEQ/100 ML IVPB IV SCH (01:55)
[2018-05-01] MEDS: XOPENEX NEB INH SCH ×4 (03:41→19:23)
[2018-05-01 04:50] LABS: ALLEN TEST YES; BE 9.4 mmoll (-3.0-3.0); BLOOD TYPE ARTERIAL; HCO3-(ACT) 32.2 mmoll (20.0-26.0); METHB 1.5 % (0.0-1.5); O2(CT) 12.8 mL/dL (15.0-23.0); O2HB 91.7 % (95.0-99.0); PCO2(98.6) 37 mmHg (35-45); PO2(98.6) 58 mmHg (60-100); SAMPLE BLOOD; SAO2 94.7 % (95.0-100.0); THB 9.9 g/dL (11.5-17.4); pH(98.6) 7.55 (7.35-7.45)
[2018-05-01 04:51] LABS: MODALITY CANNULA
[2018-05-01] MEDS: OFIRMEV 1000 MG/ISOTONIC SOLN 1,000 MG/100 ML BOTTLE IV PRN (05:58)
[2018-05-01] MEDS: HUMULIN R SUBQ SCH ×4 (05:59→20:47)
[2018-05-01] MEDS: PROTONIX IV SCH (05:59)
[2018-05-01 06:17] LABS: BASO# 0.01 X1000 (0.0-0.2); BASO% 0.1 % (0.0-0.8); HEMATOCRIT 31.8 % (42.0-52.0); HEMOGLOBIN 9.9 g/dL (14.0-18.0); IMM GRAN# 0.36 X1000 (0.0-0.04); LYMPH# 1.58 X1000 (1.2-3.4); LYMPH% 8.9 % (20.5-51.1); MCH 31.4 PG (27-31); MCHC 31.1 g/dL (33-37); MONO# 1.14 X1000 (0.11-0.59); MONO% 6.4 % (1.7-9.3); MPV 10.2 FL (7.4-10.4); NEUT# 14.71 X1000 (1.4-6.5); NEUT% 82.6 % (42.2-75.2); PLT 584 X1000 (130-400); RBC 3.15 XMIL (4.7-6.1); RDW 14.2 % (11.5-14.5)
[2018-05-01 06:37] LABS: ESTIMATED GFR > 60
[2018-05-01 06:43] LABS: AGAP 10; ALB/GLOB RATIO 0.8; ALBUMIN 2.6 g/dL (3.5-5.0); ALKALINE PHOSPHATASE 81 U/L (32-122); BUN 13 mg/dL (8-22); CALCIUM 8.6 mg/dL (8.8-10.2); CHLORIDE 117 mmol/L (98-107); COSMO 313; CREATININE 0.5 mg/dL (0.7-1.2); GLUCOSE 128 mg/dL (70-104); GOT 22 U/L (10-34); GPT 17 U/L (10-44); POTASSIUM 3.6 mmol/L (3.5-5.1); SODIUM 157 mmol/L (136-145); TCO2 30 mmol/L (25-35); TOTAL BILIRUBIN 0.35 mg/dL (0.20-1.00); TOTAL PROTEIN 5.9 g/dL (6.3-8.3)
--- NOTE | 2018-05-01 07:29 | EKG Report ---
Test Performed on : 04/29/2018 11:29:49 AM Test Reason : tachybrady syndrome Blood Pressure : / mmHG Vent. Rate : 112 BPM Atrial Rate : 112 BPM P-R Int : 128 ms QRS Dur : 106 ms QT Int : 386 ms P-R-T Axes : 034 037 077 degrees QTc Int : 526 ms Sinus tachycardia. with frequent premature ventricular complexes. Low voltage QRS Prolonged QT Abnormal ECG When compared with ECG of 28-APR-2018 07:28, premature ventricular complexes. are now present premature supraventricular complexes. are no longer present ST no longer depressed in Inferior leads Nonspecific T wave abnormality now evident in Inferior leads Unconfirmed Result
--- NOTE | 2018-05-01 07:33 | Diag Imaging Result Doc PS360 ---
EXAM: CHEST-1 VIEW INDICATION: SOB TECHNIQUE: One view COMPARISON: 04/30/2018 FINDINGS: The left costophrenic angle is out of the [id number]. Consolidation at both lung bases is approximately stable. There is increasing opacity in the right upper lobe. No other new consolidations are identified. Cardiac silhouette is stable. IMPRESSION: Slight increased opacity in the right upper lobe. Bibasilar consolidations are essentially stable. Electronically signed by Cody Diamond 05/01/2018 7:31 AM
[2018-05-01] MEDS: LOVENOX SUBQ SCH ×2 (08:03→20:47)
--- NOTE | 2018-05-01 09:05 | Diag Imaging Result Doc PS360 ---
EXAM: FLUROSCOPY ONLY IN DEPT. 05/01/2018 HISTORY: NGT placement under fluroscopy for tube feeds TECHNIQUE: One image, 42 seconds fluoroscopy time, 362.2 cGy. COMMENT: The NG tube was placed through the right nostril and advanced into the stomach. A spot film was obtained of the tip of the NG tube at the termination of the procedure. IMPRESSION: NG tube in the stomach. Electronically signed by Tomás Ro 05/01/2018 9:03 AM
--- NOTE | 2018-05-01 09:52 | Diag Imaging Result Doc PS360 ---
EXAM: MRI BRAIN W/O CONTRAST 05/01/2018 HISTORY: possible stroke TECHNIQUE: T1 sagittal, axial, T2, FLAIR, DWI axial, coronal gradient echo. COMMENT: There is considerable motion artifact. There is no evidence of bleed or abnormal extra-axial fluid collection. There is no evidence of restricted diffusion. There is some increased T2-weighted signal intensity in the medial cortex of the posterior temporal lobe and adjacent occipital lobe. This is due to chronic encephalomalacia. Encephalomalacic changes are also demonstrated on the previous CT of 04/27/2018. IMPRESSION: Chronic ischemic changes. No evidence of acute disease. Electronically signed by Tomás Ro 05/01/2018 9:49 AM
--- NOTE | 2018-05-01 09:55 | Diag Imaging Result Doc PS360 ---
EXAM: MRA NECK W/O CONT 05/01/2018 HISTORY: stroke TECHNIQUE: 3-D [id number] with 3-D MIPS COMMENT: There is flow in both vertebral arteries and the basilar artery. There may be mild intimal irregularity present in the proximal internal carotid arteries particularly on the left side. There may be up to 50% diameter stenosis present in the proximal left internal carotid artery. Correlation with Doppler ultrasound may be desirable. Both internal carotid and common carotid arteries are patent. IMPRESSION: Atherosclerotic plaque formation in both proximal internal carotid arteries particularly the left. Electronically signed by Tomás Ro 05/01/2018 9:53 AM
[2018-05-01] MEDS: POTASSIUM CHLORIDE 10 MEQ in D5W 1,000 ML IV SCH ×2 (10:04→20:49)
[2018-05-01] MEDS: ROCEPHIN 2 GM in NS 50 ML IV SCH ×2 (10:04→21:13)
[2018-05-01] MEDS: DILAUDID IV PRN ×2 (10:18→23:17)
[2018-05-01] MEDS ORDERED: POTASSIUM PHOSPHATE 30 MMOL in NS 250 ML IV ONE (10:24)
[2018-05-01] MEDS: VANCOMYCIN 1,850 MG in NS 500 ML IV SCH (13:24)
--- NOTE | 2018-05-01 16:05 | PROVIDER DOCUMENTATION ---
This chart was entered by Alessandro Askew Scribe, acting as scribe for Drew Suero MD. HPI-Neurological Disorder - General Chief Complaint: Altered Mental Status Stated Complaint: STROKE LIKE SYMPTOMS Time Seen by Provider: 04/27/18 16:40 Source: patient, family, EMS Allergies/Adverse Reactions: Patient Allergies Allergy/AdvReac Type Severity Reaction Status Date / Time morphine Allergy Severe Unknown Verified 04/04/17 09:51 Home Medications: Home Medication List Medication Instructions Recorded Confirmed Last Taken Type Omeprazole 40 mg PO DAILY 01/02/15 04/28/18 04/27/18 History Tamsulosin [Flomax] 0.4 mg PO DAILY #20 capsule 06/06/16 12/20/17 12/20/17 Rx Oxycodone HCl/Acetaminophen 1 tab PO TID PRN 10/05/16 04/28/18 04/27/18 History [Percocet 10-325 mg Tablet] Bumetanide [Bumex] 1 mg PO DAILY 12/27/16 12/20/17 12/20/17 History Furosemide [Lasix] 40 mg PO BID 12/27/16 04/28/18 04/27/18 History Methocarbamol [Robaxin-750] 750 mg PO Q8H PRN 12/27/16 12/20/17 12/20/17 History Apixaban [Eliquis] 5 mg PO BID 04/04/17 12/20/17 12/20/17 History Cholecalciferol (Vit D3) [Vitamin 5,000 unit PO DAILY 04/04/17 12/20/17 12/20/17 History D] Metolazone 5 mg PO DAILY 04/04/17 04/28/18 12/20/17 History Potassium Chloride 20 meq PO BID 04/04/17 04/28/18 04/27/18 History Spironolactone 25 mg PO DAILY 04/04/17 12/20/17 12/20/17 History Tramadol HCl [Ultram ER] 200 mg PO DAILY 04/04/17 04/28/18 04/26/18 History Cyclobenzaprine [Flexeril] 10 mg PO TID 04/29/17 12/20/17 04/27/18 History Finasteride [Proscar] 5 mg PO DAILY 04/29/17 04/28/1819 History Iron Carbonyl/Ascorbic Acid 1 each PO DAILY tablet 05/02/17 12/20/17 12/20/17 Rx [Icar-C] Baclofen 10 mg PO TID 04/28/18 04/28/18 04/27/18 History Carbamazepine [Tegretol] 200 mg PO QHS 04/28/18 04/28/18 04/26/18 History Ondansetron [Zofran] 8 mg PO Q8H PRN 04/28/18 04/28/18 04/27/18 History - History of Present Illness-Neuro Nature of Presenting Problem: 67 yom presents via ems with cc of stroke like symptoms. Pt reports pt was fine at 0530 this am when she seen him. Pt brother reports that when he spoke to him at 11:00 today that pt had a thick tongue with slurry speech. Family reports pt fell tuesday when he was walking to the mail box and was unknown how long he was down for. Family reports pt takes heavy pain medications but is out of ultram at this time.. Was seen by pcp yesterday. pt was normal. Pt had urinated on himself. Severity: reports: severe Review of Systems - Adult - REVIEW OF SYSTEMS - ADULT Constitutional: reports: see HPI. denies: chills, fever, fatique Eyes: reports: no symptoms reported Ears, Nose, Mouth & Throat: reports: no symptoms reported Cardiovascular: reports: see HPI. denies: chest pain, irregular heart rate, syncope Respiratory: reports: no symptoms reported Gastrointestinal: reports: no symptoms reported Genitourinary: reports: no symptoms reported Musculoskeletal: reports: no symptoms reported Integumentary: reports: no symptoms reported Neurological: reports: see HPI, slurred speech, other (non verbal at this time). denies: dizziness/vertigo, headache/migraines, loss of balance, numbness, paresthesia, seizure, syncope, tremors Psychiatric: reports: no symptoms reported Endocrine: reports: no symptoms reported Hematologic/Lymphatic: reports: no symptoms reported Allergic/Immunologic: reports: no symptoms reported All Other Systems: Reviewed and Negative Past History - Adult - PAST MEDICAL HISTORY-ADULT Review of Records: reports: Nursing Assessment Review Major Childhood Illnesses: reports: denies history Cardiovascular: reports: denies history Respiratory: reports: sleep apnea Gastrointestinal: reports: denies history Obstetrical/Gynecological: reports: denies history Genitourinary: reports: denies history Musculoskeletal: reports: chronic pain (neck) Neurological: reports: denies history Endocrine/Immune: reports: Diabetes Other Conditions: reports: denies history - PRIOR SURGERIES/PROCEDURES Surgical/Procedure History: reports: CABG - IMMUNIZATION STATUS Childhood Immunizations: See Nurse Assessment Flu Vaccine: See Nurse Assessment - FAMILY HISTORY Family History: reviewed, not pertinent - SOCIAL HISTORY Smoking: other (unknown) Physical Exam- Neurological - Physical Exam-Neuro Initial Vital Signs Reviewed: Yes General Appearance: alert, moderate distress, other (non verbal). negative: appears well Eye Exam: bilateral eye: PERRL HENMT: moist mucous membranes Head Injury: no evidence of injury Neck: non-tender, normal inspection Respiratory: chest non-tender, lungs clear, normal breath sounds, no pleuratic chest pain, no respiratory distress, no accessory muscle use Cardiovascular: tachycardia Abdominal Exam: soft, no organomegaly, no pulsatile mass Extremity: other (arms are shaking and drawing) retail event and sales assistant Exam: PERRL. negative: normal hearing, normal speech Coordination/Gait: negative: normal finger to nose Motor/Sensory: other (unable to check sensory or pronator. pt is nonverbal) Neurologic: abnormal retail event and sales assistant II-XII (unable to test due to pt condition) Integumentary: normal color, normal turgor, warm/dry - Glascow Coma Scale Best Eye Response: (4) open spontaneously Best Verbal Response: (1) no verbal response Best Motor Response: (1) no motor response Total Glascow Score: 6 Progress - PLAN OF CARE/RESULTS Progress/Plan/Lab Results: Orders Category Date Time Status Admit Patient To Inpatient Status Routine AdmDCTranf 04/27/18 18:13 Active Cardiac Monitoring DIRECTED Care 04/27/18 17:42 Completed Code [Resuscitation Status] Routine Care 04/27/18 18:14 Completed Daily Weights 0500 Care 04/27/18 18:10 Active FSBS/Accucheck Result AC + HS Care 04/27/18 18:15 Active Garcia Cath Insertion ORDERED Care 04/27/18 18:08 Completed Intake and Output As Ordered Q 8-HR ASSESS Care 04/27/18 18:08 Active Notify MD of + Sepsis Screen NOW Care 04/27/18 17:42 Completed Notify Physician Q12-HR ASSESS Care 04/27/18 17:42 Active Saline Loc NOW Care 04/27/18 16:42 Completed Vital Signs Order Q 4-HR ASSESS Care 04/27/18 18:08 Active Z-Document. for Tele Applied ORDERED Care 04/27/18 18:08 Completed NPO Diet 04/27/18 18:11 Active CHEST-1 VIEW [RAD] Stat Exams 04/27/18 16:42 Completed CHEST-PORTABLE [RAD] DAILY Exams 04/28/18 06:00 Completed CHEST-PORTABLE [RAD] DAILY Exams 04/29/18 06:[address] HEAD W/O CONTRAST [CT] Stat Exams 04/27/18 16:08 Completed A1C HGB W EST AVG GLUCOSE [CHEM] Routine Lab 04/28/18 07:30 Completed ABG [RESP] Routine Lab 04/27/18 17:55 Completed ABG [RESP] Routine Lab 04/28/18 04:55 Completed ALCOHOL BLOOD Stat Lab 04/27/18 16:40 Completed BLOOD CULTURE [BLDCUL] Stat Lab 04/27/18 17:25 Completed CBC WITH DIFF [HEME] Lab 04/29/18 04:58 Completed CBC WITH ELECTRONIC DIFF [HEME] Stat Lab 04/27/18 16:40 Completed CK PROFILE [SP CHEM] Stat Lab 04/27/18 16:40 Completed COMPREHENSIVE METABOLIC PANEL [CHEM] Stat Lab 04/27/18 16:40 Completed Cardiac Profile [CK PROFILE] [SP CHEM] Q8H Lab 04/28/18 07:30 Completed GRAM STAIN [BLDCUL] Stat Lab 04/27/18 16:45 Completed GRAM STAIN [BLDCUL] Stat Lab 04/27/18 17:25 Completed INFLUENZA SCREEN A/B Stat Lab 04/27/18 20:35 Completed LACTATE, PLASMA [CHEM] Q3H Lab 04/27/18 16:45 Completed LIPASE [CHEM] Stat Lab 04/27/18 16:40 Completed MAGNESIUM [CHEM] Stat Lab 04/27/18 16:40 Completed PROTIME WITH INR [COAG] Stat Lab 04/27/18 16:40 Completed PTT [COAG] Stat Lab 04/27/18 16:40 Completed TROPONIN T Q8H Lab 04/28/18 00:50 Completed TROPONIN T Q8H Lab 04/28/18 07:30 Completed TROPONIN T Stat Lab 04/27/18 16:40 Completed URINALYSIS W/POSS RFLX CULT [URINALYSIS] Stat Lab 04/27/18 19:00 Completed 0.9% Sodium Chloride Inj [Ns] 1,000 ml Med 04/27/18 18:15 Discontinued IV 100 mls/hr 0.9% Sodium Chloride Inj [Ns] 1,000 ml Med 04/27/18 16:42 Discontinued IV 999 mls/hr 0.9% Sodium Chloride Inj [Ns] 1,300 ml Med 04/27/18 17:43 Discontinued IV Wide Open mls/hr 0.9% Sodium Chloride Inj [Ns] 2,300 ml Med 04/27/18 17:34 Discontinued IV Wide Open mls/hr CefEPIME [Maxipime] 2 gm Med 04/27/18 18:15 Discontinued 0.9% Sodium Chloride Inj [Ns] 100 ml IV Q12H CefTRIAXONE [Rocephin] 1 gm Med 04/27/18 17:00 Discontinued 0.9% Sodium Chloride Inj [Ns] 50 ml IV NOW Doxycycline 100 mg Med 04/27/18 17:00 Discontinued 0.9% Sodium Chloride Inj [Ns] 250 ml IV NOW Enoxaparin [Lovenox] Med 04/28/18 09:00 Discontinued 40 mg SUBQ Q24H Insulin Human Regular [Humulin R] Med 04/27/18 21:00 Active See Protocol SUBQ 0700,1100,1600,2100 Labetalol Med 04/27/18 18:10 Active 20 mg IV Q4H PRN PRN Linezolid 600 mg/D5w [Zyvox 600 mg/D5w] Med 04/27/18 18:15 Discontinued 600 mg in 300 ml IV Q12H Lorazepam [Ativan] Med 04/27/18 16:43 Discontinued 0.5 mg IV NOW ONE Pantoprazole [Protonix] Med 04/28/18 07:00 Active 40 mg IV Q24H Sodium Chloride 0.9% Med 04/27/18 18:15 Active 10 ml INJ DIRECTED Oxygen Device Stat Oth 04/27/18 17:42 Completed Pulse Oximetry Routine Oth 04/27/18 18:11 Completed Telemetry [OM.EQ] Routine Oth 04/27/18 18:08 Active EKG [EKG] Routine Ther 04/28/18 07:00 Draft EKG [EKG] Stat Ther 04/27/18 16:42 Draft Transfer/Admit Order [TRANSFER] Routine Transfer 04/27/18 18:13 Completed A/P: Pneumonia and dehydration. elevated WBS to 30, AMS, will admit under sepsis protocol. HR elevated, will hold off BP meds until fluid hydration Result Diagrams: 05/01/18 05:55 05/01/18 05:55 - REASSESSMENT Reassessment #1 Time Reassessed: 17:38 (pt had to be suctioned due to secretion build up in throat.) - EKG 1 Time of EKG reading by physician:: 16:29 EKG Read and Signed by:: Moe Rachel EKG Interpretation (*Must complete 3 of following elements*): Abnormal Rate: 132 Rhythm: atrial flutter with variable AV block [place]: normal QRS: PVC's DC Interval: normal ST Wave: non-specific ST changes - XRAY 1 XRAY: Bilateral XRAY Study: Chest Impression: Abnormal (RLL PNA- Dr. Suero) - CT/MRI 1 CT Study: Head Impression: Normal (EXAM: CT HEAD W/O CONTRAST INDICATION: STROKE LIKE SYMPTOMS TECHNIQUE: This exam was performed using automated exposure control, adjustment of mA or kV according to patient size, and/or use of iterative reconstruction technique. COMPARISON: 04/29/2017 FINDINGS: There is medial right occipital lobe encephalomalacia that has developed during the interval. There is mild periventricular white matter microangiopathy that is stable. There is no definite acute infarct given the limited sensitivity of CT versus MRI. There is no discrete intracranial mass, mass effect, or intracranial hemorrhage. The surrounding soft tissues and bony structures are essentially unremarkable. IMPRESSION: Chronic appearing changes as described. No evidence of acute pathology by CT. Electronically signed by Cody Diamond 04/27/2018 4:55 PM 04/27/186 Interpreting Physician: Cody Diamond MD Dictated Date/Time: 04/27/[id number]), See EMR Report - CONSULTS/PCP/HOSPITALIST Notification #1 *Consult/PCP/Hospitalist*: yoselin armando for Dr wiseman Time Discussed: 17:50 Consult Disposition: Admit Departure - Departure Date of Disposition Decision: 04/27/18 Time of Disposition Decision: 17:50 DIAGNOSIS: Pneumonia, Altered mental status Disposition: ADMITTED INPATIENT 09 Certified Medical Emergency: Emergent Condition: Serious - Critical Care Note This patient required my direct & personal management of CC.: No Total Time (mins): 36 Critical Care Statement: This patient required my direct personal management to treat or rule out processes, the absence of which, could potentiallly result in sudden, clinically significant life or limb threatening deterioration. Attestation - Physician/ SMITA Attestation Patient care was provided by Advanced Practice Provider:: No The physician spent face to face time with patient:: Yes Advanced Practice Provider documentation review:: Supervising physician onsite and consulted in the evaluation and care of this patient. The physician did have a face to face encounter with the patient. This chart was documented by the indicated scribe, (Alessandro Askew Scribe) and accurately reflects the services I performed and decisions made by me, Drew Suero MD, as attested by the provider's signature.
--- NOTE | 2018-05-01 16:07 | INFECTIOUS DISEASE PROGRESS NO ---
DATE: 05/01/2018 HISTORY OF PRESENT ILLNESS: Mr. Mahmood is being treated for a right-sided pneumonia with an associated bacteremia, which is growing Streptococcus pneumoniae. MEDICATIONS: He has been receiving IV vancomycin per pharmacy dosing and Rocephin 2 g IV every 12 hours for the last 3 days. PHYSICAL EXAMINATION: Vital Signs: Temperature is 100.2 degrees, pulse rate 111, respiratory rate 19, blood pressure 135/70, O2 saturation 98% on room air. General: This is a chronically ill-appearing elderly gentleman. He is lying in bed, currently in no acute distress. HEENT: He is atraumatic, normocephalic. Oral mucous membranes are pink and moist. Conjunctivae are pale. Cardiovascular: Heart rate and rhythm are regular. Normal sinus rhythm on the monitor. Respiratory: Lung sounds are clear to auscultation in the upper lobes, diminished in the bases. Abdomen: Soft, round and tender on palpation. Bowel sounds are active. There is an NG tube in place. He is receiving tube feedings. Neurologic: He is awake, alert, and oriented to person only. He is very hard of hearing. Able to move his extremities with significant weakness. Mild tremors are noted to his upper extremities. LABORATORY AND X-RAY: Today, his white count is down to 17.8, hemoglobin 9.9, platelet count 584,000. On 1 L nasal cannula this morning, his pH was 7.55, pCO2 37, pO2 58, HC03 32.2. Creatinine 0.5, estimated GFR greater than 60. Total bilirubin 0.35, AST 22, ALT 17, alkaline phosphatase 81. A urinalysis done this weekend showed clear yellow urine with no bacteria. Immunoglobulin levels show an IgA of 157 and an IgG of 615. Urine culture has shown no growth. Blood cultures grew Streptococcus pneumoniae. Neck MRA today shows atherosclerotic plaques to bilateral carotid arteries. Brain MRI shows chronic ischemic changes but no acute disease. Chest x-ray shows slight increased opacity in the right upper lobe with bibasilar consolidations which are stable. ASSESSMENT AND PLAN: Mr. Mahmodo is being treated for a pneumococcal pneumonia with an associated bacteremia. He has been receiving IV vancomycin per pharmacy dosing and Rocephin 2 g IV every 12 hours. At this point, we will go ahead and recheck his blood cultures, looking for sterile set. Also, we will stop his vancomycin and leave him on the Rocephin as ordered. His immunoglobulin levels are slightly low, however, they do not merit a transfusion at this time. These plans have been discussed with and recommended by Dr. Kaminski. COMORBIDITIES: Comorbidities for Mr. Mahmood include that he is elderly with coronary artery disease, tobacco dependent, chronic obstructive pulmonary disease, history of atrial fibrillation, and congestive heart failure. Dictated by KAREN Lares for Stephen Kaminski MD This chart was documented by, KAREN Lares and accurately reflects the services performed, treatment plan and medical decisions as attested by the providers signature Stephen Kaminski MD. cc: MD VIOLET Scott
--- NOTE | 2018-05-01 17:11 | PROGRESS NOTE ---
DATE: 05/01/2018 LOCATION: ICU bed #4. SUBJECTIVE: Mr. Mahmood has had occasional moderate temperature elevation, 100.8 about a day and a half ago, 100.2 almost 2 days ago. WBC is down from 40,000 to 17,800. reports he has been more alert but still confused. reports he did not seem to recognize his sister and [id number] earlier today. Brain MRI done without contrast earlier today shows scattered ischemic change with nothing focal or acute and no evidence of meningitis. MRA was unremarkable. PHYSICAL EXAMINATION: On exam now, Mr. Mahmood is awake and alert. He answered simple questions correctly. He followed simple commands including commands requiring right/left distinction and digit distinction. He identified objects and parts of objects correctly. He named the president incorrectly. He identified the hospital only partially. He did not answer any question regarding orientation in time correctly. ASSESSMENT AND PLAN: Negative MRI is reassuring. He is significantly improved with global encephalopathy. In light of his baseline cognitive impairment, we anticipate encephalopathy will be more protracted. I discussed that again with at the bedside. I do not have any new suggestion from Neurology standpoint right now. Thanks for asking us to see Mr. Mahmood. cc: MD VIOLET Cabrales III
--- NOTE | 2018-05-01 18:57 | PROGRESS NOTE ---
DATE: 05/01/2018 SUBJECTIVE: The patient is more awake and alert today. He is able to interact with the nursing staff and his family. OBJECTIVE: Vital Signs: Temperature 99 degrees, blood pressure 144/62, heart rate 70, respirations 20, O2 saturation is 100% on 2 L nasal cannula. General: This is a chronically ill- appearing, elderly male lying in bed, in no acute distress. Heart: S1, S2 normal. Regular rate and rhythm. Lungs: Equal air entry bilaterally. No wheezing. No rales. No rhonchi. Abdomen: Positive bowel sounds. Soft, nontender, nondistended. Extremities: No edema. No cyanosis. Neurologic: The patient is awake. He is able to follow commands. LABS: White blood cell count 17, hemoglobin 9.9, hematocrit 31, platelets 584,000. Sodium 157, potassium 3.6, chloride 117, CO2 30, BUN 13, creatinine 0.5, glucose 128, phosphorus 1.3. ASSESSMENT AND PLAN: 1. Acute hypoxemic respiratory failure. Improved. 2. Sepsis secondary to pneumonia. Continue with antibiotic therapy. 3. Bacteremia secondary to Streptococcus pneumoniae. Continue with the current antibiotic regimen. 4. Metabolic encephalopathy. Slowly improving. The MRI of the brain was noted to be negative for stroke. 5. Hypernatremia. Continue on D5W. We will also add free water flushes through the NG tube. 6. Nutrition. We will start tube feeds today. 7. Paroxysmal atrial fibrillation. The patient is rate controlled. He remains on full dose Lovenox. 8. Coronary artery disease. Aware. 9. Leukocytosis. Improved. Continue with antibiotic therapy. 10. Chronic obstructive pulmonary disease. Continue on bronchodilator therapy. 11. Deep vein thrombosis prophylaxis. The patient is on full-dose Lovenox. cc: Pam Chavez MD [facility]
[2018-05-01 19:55] LABS: AGAP 10; BUN 12 mg/dL (8-22); CALCIUM 8.4 mg/dL (8.8-10.2); CHLORIDE 113 mmol/L (98-107); COSMO 303; CREATININE 0.5 mg/dL (0.7-1.2); ESTIMATED GFR > 60; GLUCOSE 126 mg/dL (70-104); POTASSIUM 3.3 mmol/L (3.5-5.1); SODIUM 152 mmol/L (136-145); TCO2 29 mmol/L (25-35)
[2018-05-01] MEDS ORDERED: POTASSIUM CHLORIDE 60 MEQ in NS 500 ML IV ONE (21:43)
[2018-05-02] MEDS: XOPENEX NEB INH SCH ×4 (03:01→21:09)
[2018-05-02] MEDS: DILAUDID IV PRN ×2 (04:16→16:17)
[2018-05-02 04:33] LABS: ALLEN TEST YES; BE 8.2 mmoll (-3.0-3.0); BLOOD TYPE ARTERIAL; HCO3-(ACT) 31.3 mmoll (20.0-26.0); O2(CT) 5.6 mL/dL (15.0-23.0); O2HB 93.4 % (95.0-99.0); PCO2(98.6) 34 mmHg (35-45); PO2(98.6) 62 mmHg (60-100); SAMPLE BLOOD; SAO2 95.7 % (95.0-100.0); THB 4.2 g/dL (11.5-17.4)
[2018-05-02 04:34] LABS: MODALITY ROOM AIR; pH(98.6) 7.57 (7.35-7.45)
[2018-05-02] MEDS: POTASSIUM CHLORIDE 10 MEQ in D5W 1,000 ML IV SCH ×2 (05:57→17:03)
[2018-05-02] MEDS: HUMULIN R SUBQ SCH ×4 (05:59→21:33)
[2018-05-02] MEDS: PROTONIX IV SCH (06:00)
[2018-05-02 06:26] LABS: BASO# 0.02 X1000 (0.0-0.2); BASO% 0.1 % (0.0-0.8); EOS# 0.03 X1000 (0.0-0.7); EOS% 0.2 % (0.0-10.0); HEMATOCRIT 29.7 % (42.0-52.0); HEMOGLOBIN 9.3 g/dL (14.0-18.0); IMM GRAN% 2.7 % (0.0-0.5); LYMPH# 2.02 X1000 (1.2-3.4); LYMPH% 13.4 % (20.5-51.1); MCHC 31.3 g/dL (33-37); MCV 102.1 FL (81-99); MONO# 0.75 X1000 (0.11-0.59); MPV 10.8 FL (7.4-10.4); NEUT# 11.83 X1000 (1.4-6.5); NEUT% 78.6 % (42.2-75.2); PLT 543 X1000 (130-400); RBC 2.91 XMIL (4.7-6.1); WBC 15.05 X1000 (4.8-10.8)
[2018-05-02 06:48] LABS: LYMPHS 18 % (21-51); SEGS 78 % (42-75)
[2018-05-02 07:33] LABS: AGAP 12; ALB/GLOB RATIO 0.7; ALBUMIN 1.9 g/dL (3.5-5.0); ALKALINE PHOSPHATASE 66 U/L (32-122); BUN 9 mg/dL (8-22); CHLORIDE 119 mmol/L (98-107); COSMO 298; CREATININE 0.3 mg/dL (0.7-1.2); ESTIMATED GFR > 60; GLUCOSE 94 mg/dL (70-104); GOT 25 U/L (10-34); GPT 15 U/L (10-44); POTASSIUM 3.4 mmol/L (3.5-5.1); SODIUM 151 mmol/L (136-145); TCO2 20 mmol/L (25-35); TOTAL BILIRUBIN 0.22 mg/dL (0.20-1.00); TOTAL PROTEIN 4.6 g/dL (6.3-8.3)
[2018-05-02 07:54] LABS: CALCIUM 6.8 mg/dL (8.8-10.2)
[2018-05-02] MEDS ORDERED: CALCIUM GLUCONATE 2 GM in NS 100 ML IV ONE (08:05)
--- NOTE | 2018-05-02 08:06 | Diag Imaging Result Doc PS360 ---
CHEST-1 VIEW - 05/02/2018 INDICATION: SOB COMPARISON: 05/01/2018 FINDINGS: Stable infiltrate throughout the right lung base. Stable significant background interstitial infiltrates compatible with pulmonary edema. Stable cardiomegaly and pulmonary vascular congestion. No pneumothorax or large pleural effusion. IMPRESSION: No change from prior. Pulmonary edema with indeterminate focal infiltrate in the right lung base. Electronically signed by Ry Mederos 05/02/2018 8:04 AM
[2018-05-02] MEDS: LOVENOX SUBQ SCH ×2 (09:00→21:41)
--- NOTE | 2018-05-02 09:26 | INFECTIOUS DISEASE PROGRESS NO ---
DATE: 05/02/2018 HISTORY: The patient has a pneumococcal bacteremia originating from a pneumococcal pneumonia of the right chest. MEDICATIONS: The patient is on Rocephin as a single drug and this is day 4 of treatment with it. PHYSICAL EXAMINATION: Vital Signs: Temperature is 99.2 degrees, pulse 62, respirations 18, blood pressure 146/62. General: This is a chronically ill-appearing, elderly male. He is in no acute distress. Head, Eyes, Ears, Nose, and Throat: He can hear my spoken words and see near objects. He does not have any white patches on his tongue. Neck: No stiffness. Lungs: There were decreased breath sounds on the right side. The left lung was clear. Cardiovascular: The patient's heart rate at times seems regular and other times seems irregular. Abdomen: Soft and nontender. Neurologic: The patient is awake. He can move his extremities. There is no tremor. LAB AND X-RAY: Chest x-ray shows stable pulmonary edema and infiltrate in the right lung. Repeat blood cultures are pending. Liver function studies are normal. CBC shows a white count of 15,050, hemoglobin 9.3, and platelet count 543,000. Blood gases show a pH of 7.57, PO2 of 62, and a pCO2 of 34. Creatinine is 0.3. GFR is greater than 60. ASSESSMENT AND PLAN: The patient is being treated for pneumococcal pneumonia and associated bacteremia. I plan to treat the patient with Rocephin for a total of 14 days with day 1 being the first day that the patient's repeat blood cultures are sterile. The patient's immunoglobulin levels are slightly low. However, I do not think they merit infusion of IVIG. I will plan to repeat the patient's immunoglobulin levels in about 6 weeks to see if they are falling further or whether they are about the same or in the normal range. COMORBIDITIES: The patient is elderly. He is a cigarette smoker. He has COPD. cc: Stephen Kaminski MD
[2018-05-02] MEDS: ROCEPHIN 2 GM in NS 50 ML IV SCH ×2 (10:22→21:40)
--- NOTE | 2018-05-02 11:10 | Carotid Study ---
DATE: 04/30/2018 PROCEDURE: Carotid duplex imaging. REFERRING PHYSICIAN: Dr. Chavez INTERPRETING PHYSICIAN: Dr. Bucio TECH: Davin INDICATIONS: Stenosis. COMPARISON STUDY: 10/05/2016 EQUIPMENT: [employer] E9 ultrasound system with a 9LD transducer. OBSERVED DATA RIGHT LEFT Brachial Blood Pressure Carotid Pulse Bruits: Carotid/Sub DIAGRAM OF ULTRASOUND IMAGING R L RIGHT INT EXT INT EXT LEFT Fahad (cm/s) Fahad (cm/s) Subclavian 149/5 Subclavian 85/0 CCA Proximal 100/11 CCA Proximal 75/14 CCA Distal 98/17 CCA Distal 103/12 Bulb 98/9 Bulb 100/14 ICA Proximal 112/9 ICA Proximal 104/21 ICA Mid 112/17 ICA Mid 100/17 ICA Distal 96/14 ICA Distal 88/18 ECA 120/3 ECA 123/6 Vertebral 76/12 A Vertebral 39/0 A ICA/CCA Ratio 1.11 ICA/CCA Ratio 1.01 % Stenosis 40 to 59 % Stenosis 0 to 39 FINDINGS: Minimal atherosclerosis noted to bilateral carotid arteries which produces a moderate stenosis, but this stenosis is probably closer to the 40% range. Both vertebral arteries are antegrade flow. PHYSICIAN INTERPRETATION: Right side has stenosis of 40% to 59%, likely closer to the 40% range. The left side has stenosis of 0% to 39%. cc: MD Pam Ma MD
--- NOTE | 2018-05-02 11:52 | PROGRESS NOTE ---
DATE: 05/02/2018 Mr. Mahmood is awake and alert. He is consistently attentive to me at the bedside. He was still not able to answer most of the questions regarding orientation including answering none of the questions correctly regarding orientation to time. IMPRESSION: I do not find any new neurologic problem. I do not have any new suggestion from a neurologic standpoint. He has baseline encephalopathy and time will tell how much recovery we see this time. Thanks for asking Neurology to see him. cc: MD VIOLET Cabrales III
[2018-05-02] MEDS ORDERED: LASIX IV ONE (14:23)
--- NOTE | 2018-05-02 14:46 | PROGRESS NOTE ---
DATE: 05/02/2018 SUBJECTIVE: The patient resting in bed. He is confused. OBJECTIVE: Vital signs: Temperature 99.1 degrees, pulse 69, respirations 16, blood pressure 160/61, oxygen saturation is 96%. HEENT: Atraumatic and normocephalic. He does have an NG tube in place. Cardiovascular system: S1, S2. Respiratory system: Has evidence of good air entry bilaterally. Abdomen: Soft, nontender. No masses felt. Extremities: No evidence of edema. Central nervous system: The patient does not have any obvious focal deficits; however, he is confused. DIAGNOSTIC STUDIES: WBC is 15.05, hematocrit is 29.7 with a platelet count of 503. ABG 7.57/84/62/95.7. Sodium is 151, potassium 3.4, chloride is 119, is 20, BUN is 9, creatinine 0.3, calcium level is 6.8. Blood cultures from 04/27/2018 positive for Streptococcus pneumoniae. X-ray of the chest shows pulmonary edema with intermediate focal infiltrate in the right lung base. ASSESSMENT AND PLAN: 1. Acute respiratory failure, secondary to pneumonia as well as acute pulmonary edema. 2. Sepsis, secondary to pneumonia. Continue antibiotics. 3. Bacteremia, secondary to Streptococcus pneumoniae. We will continue antibiotics as recommended by Infectious Disease. 4. Acute pulmonary edema. Maintain patient on diuretics. Monitor intakes and outputs, as well as daily weights. Request a 2D echocardiogram of the heart. 5. Metabolic encephalopathy. Probably secondary to infective process. Continue to follow up on patient's neurologic status. 6. Hypernatremia. Continue D5W. Also use free water flushes via NG tube. Follow up on sodium level. 7. Paroxysmal atrial fibrillation. The patient is currently on rate-controlling agents (diltiazem as well as anticoagulation with Lovenox). 8. Coronary artery disease. Stable. 9. Chronic obstructive pulmonary disease (COPD). Use nebulized bronchodilators as needed. 10. Hypocalemia. Etiology not clear. We will check magnesium level, phosphorus level, 25- hydroxy vitamin D level. Replace calcium level accordingly. 11. Deep vein thrombosis (DVT) prophylaxis. The patient is on full dose of Lovenox. 12. Gastrointestinal (GI) prophylaxis. PPI. cc: Rich Leonardo MD [facility]
[2018-05-02 15:34] LABS: MAGNESIUM 1.7 mg/dL (1.5-2.7); PHOSPHORUS 2.8 mg/dL (2.7-4.5)
[2018-05-03] MEDS: DILAUDID IV PRN ×2 (00:14→05:20)
[2018-05-03] MEDS: POTASSIUM CHLORIDE 10 MEQ in D5W 1,000 ML IV SCH ×3 (03:07→23:03)
[2018-05-03] MEDS: XOPENEX NEB INH SCH ×5 (03:26→22:00)
[2018-05-03 04:56] LABS: ALLEN TEST YES; BE 6.4 mmoll (-3.0-3.0); BLOOD TYPE ARTERIAL; HCO3-(ACT) 29.8 mmoll (20.0-26.0); MODALITY ROOM AIR; O2(CT) 19.4 mL/dL (15.0-23.0); O2HB 93.1 % (95.0-99.0); PCO2(98.6) 36 mmHg (35-45); PO2(98.6) 70 mmHg (60-100); SAMPLE BLOOD; SAO2 95.1 % (95.0-100.0); THB 14.8 g/dL (11.5-17.4); pH(98.6) 7.52 (7.35-7.45)
[2018-05-03 05:36] LABS: BASO# 0.02 X1000 (0.0-0.2); BASO% 0.1 % (0.0-0.8); EOS# 0.07 X1000 (0.0-0.7); EOS% 0.4 % (0.0-10.0); HEMATOCRIT 31.7 % (42.0-52.0); HEMOGLOBIN 10.2 g/dL (14.0-18.0); IMM GRAN# 0.66 X1000 (0.0-0.04); IMM GRAN% 3.9 % (0.0-0.5); LYMPH# 2.18 X1000 (1.2-3.4); MCH 32.4 PG (27-31); MCHC 32.2 g/dL (33-37); MCV 100.6 FL (81-99); MONO# 0.83 X1000 (0.11-0.59); NEUT# 12.96 X1000 (1.4-6.5); NEUT% 77.6 % (42.2-75.2); PLT 536 X1000 (130-400); RBC 3.15 XMIL (4.7-6.1); RDW 13.8 % (11.5-14.5); WBC 16.72 X1000 (4.8-10.8)
[2018-05-03 05:52] LABS: AGAP 12; BUN 11 mg/dL (8-22); CALCIUM 8.2 mg/dL (8.8-10.2); CHLORIDE 108 mmol/L (98-107); COSMO 293; CREATININE 0.4 mg/dL (0.7-1.2); ESTIMATED GFR > 60; GLUCOSE 121 mg/dL (70-104); POTASSIUM 3.1 mmol/L (3.5-5.1); SODIUM 147 mmol/L (136-145); TCO2 27 mmol/L (25-35)
[2018-05-03 06:10] LABS: LYMPHS 11 % (21-51); MONO 4 % (1-9); SEGS 84 % (42-75)
[2018-05-03] MEDS: HUMULIN R SUBQ SCH ×4 (06:28→21:12)
[2018-05-03] MEDS: PROTONIX IV SCH (06:36)
[2018-05-03] MEDS: SODIUM CHLORIDE 0.9% INJ SCH (06:37)
--- NOTE | 2018-05-03 07:53 | Diag Imaging Result Doc PS360 ---
EXAM: CHEST-PORTABLE INDICATION: NG tube placement TECHNIQUE: One view COMPARISON: 05/02/2018 FINDINGS: The NG tube projects below the diaphragm and is assumed to be in the lumen of the stomach in expected position. Bilateral interstitial edema and right basilar infiltrate are stable. No new consolidation is identified. Cardiac silhouette is stable. IMPRESSION: Stable chest. Electronically signed by Cody Diamond 05/03/2018 7:51 AM
[2018-05-03] MEDS: LOVENOX SUBQ SCH ×2 (08:13→21:26)
--- NOTE | 2018-05-03 09:09 | INFECTIOUS DISEASE PROGRESS NO ---
DATE: 05/03/2018 PRESENT ILLNESS: The patient has pneumococcal pneumonia with an associated pneumococcal bacteremia. MEDICATIONS: The patient is on Rocephin. This is day 2 of treatment with Rocephin with day #1 being the first day that the patient's repeat blood cultures are sterile. PHYSICAL EXAMINATION: Vital Signs: Temperature is 99 degrees, pulse 73, respirations 24, blood pressure 121/54. General: This is a chronically ill-appearing elderly male. He is in no acute distress. Head, eyes, ears, nose, and throat: He can hear my spoken words. He can see near objects. He does not have any white coating of his tongue. Neck: No meningismus. Lungs: Clear to auscultation. Cardiovascular: Heart rate is regular. Abdomen: Soft and nontender. Neurologic: The patient is lethargic. He did not have a tremor. He did not move his extremities to request. Integument: No rash noted. LAB AND X-RAY: Chest x-ray shows a right lower lobe infiltrate with bilateral edema. IgG is 615, creatinine 0.4, GFR is greater than 60. Blood gases show a pH of 7.52, a pO2 of 70, pCO2 of 36. CBC shows a white count of 16,720, hemoglobin 10.2, and platelet count is 536,000. ASSESSMENT AND PLAN: The patient has pneumococcal pneumonia and an associated bacteremia. I plan to treat the patient with Rocephin for 14 days. The patient's immunoglobulin G level is marginally low and does not require replacement therapy. COMORBIDITIES: He is elderly and a cigarette smoker. He has COPD. cc: Stephen Kaminski MD
[2018-05-03] MEDS: NS NEB INH SCH (09:35)
[2018-05-03] MEDS: ROCEPHIN 2 GM in NS 50 ML IV SCH ×2 (10:32→21:26)
--- NOTE | 2018-05-03 13:05 | PROGRESS NOTE ---
DATE: 05/03/2018 Mr. Mahmood is awake, alert, attentive during my entire time at his bedside. was present and reports no major neurologic changes. I discussed expected slow resolution of encephalopathy with . Time will tell. No new suggestion from Neurology standpoint. Thanks for asking neurology to see Mr. Mahmood. cc: Florentino Hook III, MD [facility]
[2018-05-03] MEDS ORDERED: BLISTEX MEDICATED BERRY LIP BALM TOP PRN (15:32)
--- NOTE | 2018-05-03 16:39 | PROGRESS NOTE ---
DATE: 05/03/2018 SUBJECTIVE: Patient is resting in bed. Sensorium is much better today. OBJECTIVE: Vital signs: Temperature 98.6 degrees, pulse 74, respirations 22, blood pressure 129/71, oxygen saturation is 96%. HEENT: Atraumatic, normocephalic. Cardiovascular: S1, S2. Respiratory: Has evidence of good entry bilaterally. Abdomen: Soft, nontender. No masses felt. Extremities: Has slight edema in the right lower extremity. Central nervous system: The patient is awake, not well oriented. No obvious focal deficit noted. LABORATORY DATA: WBC 16.72, hematocrit is 31.7, with a platelet count of 536,000. ABG 7.52/36/70/95.1. Chemistry: Sodium is 147, potassium 3.1, chloride 108, bicarb 27, BUN is 11, creatinine 0.4. X-ray of the chest shows bilateral interstitial edema with right basilar infiltrate. ASSESSMENT AND PLAN: 1. Acute respiratory failure secondary to pneumonia as well as acute pulmonary edema. Address primary lung conditions, specifically pneumonia as well as pulmonary edema. The patient will be on antibiotics for the pneumonia and will use diuretics as needed for pulmonary congestion. Maintain patient on supplemental oxygen. Pulmonary team following. 2. Sepsis secondary to pneumonia. Continue antibiotics. 3. Bacteremia secondary to Streptococcus pneumoniae. Continue antibiotics as recommended by ID. 4. Metabolic encephalopathy, most likely secondary to infective process. Continue to follow up on patient's neurologic status. 5. Hypernatremia. Improving. Continue current treatment. 6. Paroxysmal atrial fibrillation. Continue rate controlling agent, diltiazem as well as anticoagulation. 7. Coronary artery disease. Stable. 8. Chronic obstructive pulmonary disease. Use nebulized bronchodilators as needed. 9. Hypocalcemia, improved. The patient is noted to have a low vitamin D level. We will start patient on vitamin D replacement. 10. Deep vein thrombosis prophylaxis. Lovenox. 11. Gastrointestinal prophylaxis. PPI. cc: Rich Leonardo MD
[2018-05-04] MEDS: XOPENEX NEB INH SCH ×3 (03:16→15:31)
[2018-05-04 04:59] LABS: ALLEN TEST YES; BE 4.1 mmoll (-3.0-3.0); BLOOD TYPE ARTERIAL; HCO3-(ACT) 28.1 mmoll (20.0-26.0); METHB 0.2 % (0.0-1.5); O2(CT) 13.9 mL/dL (15.0-23.0); O2HB 96.2 % (95.0-99.0); PCO2(98.6) 31 mmHg (35-45); PO2(98.6) 77 mmHg (60-100); SAMPLE BLOOD; SAO2 99.1 % (95.0-100.0); THB 10.2 g/dL (11.5-17.4); pH(98.6) 7.54 (7.35-7.45)
[2018-05-04] MEDS: DILAUDID IV PRN ×2 (05:53→22:38)
[2018-05-04] MEDS: HUMULIN R SUBQ SCH ×4 (06:19→20:22)
[2018-05-04] MEDS: PROTONIX IV SCH (06:35)
[2018-05-04] MEDS: SODIUM CHLORIDE 0.9% INJ SCH (06:35)
--- NOTE | 2018-05-04 07:35 | Diag Imaging Result Doc PS360 ---
CHEST-1 VIEW - 05/04/2018 INDICATION: SOB COMPARISON: 05/03/2018 FINDINGS: Stable nasogastric tube with the tip entering the stomach. Stable hazy infiltrate throughout both lung bases right greater than left. Stable sternotomy wires. Heart size and pulmonary vascularity is top normal. IMPRESSION: No change from prior. Electronically signed by Ry Mederos 05/04/2018 7:33 AM
[2018-05-04] MEDS: LOVENOX SUBQ SCH ×2 (08:26→21:35)
[2018-05-04] MEDS: VITAMIN D PO SCH (08:26)
[2018-05-04] MEDS: POTASSIUM CHLORIDE 10 MEQ in D5W 1,000 ML IV SCH ×2 (08:29→19:37)
[2018-05-04] MEDS: ROCEPHIN 2 GM in NS 50 ML IV SCH ×2 (10:09→21:35)
[2018-05-04] MEDS: NS NEB INH SCH (10:15)
--- NOTE | 2018-05-04 12:00 | PROGRESS NOTE ---
DATE: 05/04/2018 SUBJECTIVE: Mr. Mahmood was awake and alert as I approached the bedside. He made eye contact with me and kept his gaze on me as I went from one side of his bed to the other. He followed some simple commands consistently. He was slow to follow commands requiring use of the limbs. Limb tone remains increased throughout, but is less than when I initially saw him six days ago, and he does not have tremulousness or vanessa myoclonus now. He named the hospital correctly. He guessed wrong with the day of the week and the month. IMPRESSION: Stupor on presentation has resolved. Global encephalopathy is slowly improving. There is history of baseline cognitive impairment, and I am not certain how close he is to his baseline now. No new suggestions from Neurology. Thanks for asking us to see Mr. Mahmood. cc: Florentino Hook III, MD MTDD
--- NOTE | 2018-05-04 17:53 | PROGRESS NOTE ---
DATE: 05/04/2018 SUBJECTIVE: Patient resting comfortably in bed. Sensorium seems to be better. OBJECTIVE: Vital Signs: Temperature 98.8, pulse 75, respirations 18, blood pressure is 126/59. Oxygen saturation is 96%. HEENT: Atraumatic, normocephalic. Cardiovascular: S1, S2. Respiratory: Has evidence of good entry bilaterally. Abdomen: Soft, nontender. No masses felt. Extremities: No evidence of edema. Central Nervous System: No obvious focal deficit noted. X-ray of chest shows stable hazy infiltrate throughout both lung jacinto, goes down to lung bases. Worse on the right than the left. ASSESSMENT AND PLAN: 1. Acute respiratory failure secondary to pneumonia as well as acute pulmonary edema. Treat primary lung condition, supplement with oxygen. 2. Sepsis secondary to pneumonia. Continue antibiotics. 3. Bacteremia secondary to strep pneumoniae. Continue antibiotics. 4. Encephalopathy. Improving. 5. Hyponatremia. Continue current regimen. 6. Paroxysmal atrial fibrillation. Continue rate control agent as well as anticoagulation. 7. Chronic disease. Stable. 8. COPD. Use nebulized bronchodilators as needed. 9. Hypocalcemia probably related to vitamin D deficiency. Patient started on vitamin D replacement. 10. DVT prophylaxis. Lovenox. 11. GI prophylaxis. Proton pump inhibitor. cc: Rich Leonardo MD [facility]
--- NOTE | 2018-05-04 18:23 | INFECTIOUS DISEASE PROGRESS NO ---
DATE: 05/04/2018 PRESENT ILLNESS: Mr. Mahmood has a pneumococcal pneumonia with an associated bacteremia. MEDICATIONS: Based on his sterile blood cultures, today is day 3 of treatment for his bacteremia and is currently receiving ceftriaxone 2 g IV every 12 hours. PHYSICAL EXAM: Vital signs: Temperature is 98.8 degrees, pulse rate 75, respiratory rate 18, blood pressure 126/59, O2 saturation is 96% on room air. General: This is a chronically ill-appearing, elderly gentleman. He is lying in bed, currently in no acute distress. HEENT: Oral mucous membranes are pink and dry. Conjunctivae are pale. Cardiovascular: Heart rate and rhythm are regular. Normal sinus rhythm on the monitor. Respiratory: Lung sounds are diminished bilaterally. Abdomen is soft, round and nontender. Bowel sounds are active. Neurologic: He is awake, alert and appropriate, following commands without difficulty. Generalized weakness noted. LABORATORY DATA: Today his blood gas on room air showed a pH of 7.54, pCO2 of 31, pO2 of 77, HCO3 of 28.1. Originally his blood cultures showed Streptococcus pneumoniae, and most recent blood cultures have shown no growth after 48 hours. Urine culture has shown no growth. DIAGNOSTIC DATA: Chest x-ray today shows no change from prior, with stable hazy infiltrates throughout both lung bases, right greater than left. ASSESSMENT AND PLAN: Mr. Mahmood is being treated for a pneumococcal pneumonia with an associated bacteremia. He will need 14 days of Rocephin. Based on his sterile blood cultures, today is day 3. We will continue Rocephin as ordered. These plans have been discussed with and recommended by Dr. Kaminski. COMORBIDITIES for Mr. Mahmood include that he is an elderly cigarette smoker with chronic obstructive pulmonary disease and global encephalopathy. Dictated by KAREN Lares for Stephen Kaminski MD This chart was documented by, KAREN Lares and accurately reflects the services performed, treatment plan and medical decisions as attested by the providers signature Stephen Kaminski MD. cc: Stephen Kaminski MD [facility]
[2018-05-05] MEDS: XOPENEX NEB INH SCH ×5 (02:44→22:06)
[2018-05-05 04:23] LABS: ALLEN TEST YES; BE 2.1 mmoll (-3.0-3.0); BLOOD TYPE ARTERIAL; HCO3-(ACT) 26.5 mmoll (20.0-26.0); METHB 0.7 % (0.0-1.5); O2(CT) 14.5 mL/dL (15.0-23.0); O2HB 95.1 % (95.0-99.0); PCO2(98.6) 31 mmHg (35-45); PO2(98.6) 75 mmHg (60-100); SAMPLE BLOOD; SAO2 99.2 % (95.0-100.0); THB 10.8 g/dL (11.5-17.4); pH(98.6) 7.51 (7.35-7.45)
[2018-05-05 04:28] LABS: MODALITY ROOM AIR
[2018-05-05 05:43] LABS: AGAP 10; ALB/GLOB RATIO 0.8; ALBUMIN 2.2 g/dL (3.5-5.0); ALKALINE PHOSPHATASE 75 U/L (32-122); BUN 8 mg/dL (8-22); CALCIUM 7.5 mg/dL (8.8-10.2); CHLORIDE 105 mmol/L (98-107); COSMO 270; CREATININE 0.3 mg/dL (0.7-1.2); ESTIMATED GFR > 60; GLUCOSE 88 mg/dL (70-104); GOT 38 U/L (10-34); GPT 34 U/L (10-44); POTASSIUM 3.9 mmol/L (3.5-5.1); SODIUM 136 mmol/L (136-145); TCO2 21 mmol/L (25-35); TOTAL BILIRUBIN 0.23 mg/dL (0.20-1.00); TOTAL PROTEIN 5.1 g/dL (6.3-8.3)
[2018-05-05 05:47] LABS: BASO# 0.04 X1000 (0.0-0.2); BASO% 0.2 % (0.0-0.8); EOS# 0.12 X1000 (0.0-0.7); EOS% 0.7 % (0.0-10.0); HEMATOCRIT 38.2 % (42.0-52.0); HEMOGLOBIN 12.3 g/dL (14.0-18.0); IMM GRAN# 0.71 X1000 (0.0-0.04); IMM GRAN% 4.3 % (0.0-0.5); LYMPH% 12.2 % (20.5-51.1); MCHC 32.2 g/dL (33-37); MCV 102.4 FL (81-99); MONO% 7.3 % (1.7-9.3); MPV 10.5 FL (7.4-10.4); NEUT# 12.31 X1000 (1.4-6.5); NEUT% 75.3 % (42.2-75.2); PLT 463 X1000 (130-400); RBC 3.73 XMIL (4.7-6.1); RDW 14.4 % (11.5-14.5); WBC 16.38 X1000 (4.8-10.8)
[2018-05-05] MEDS: POTASSIUM CHLORIDE 10 MEQ in D5W 1,000 ML IV SCH ×2 (05:50→20:26)
[2018-05-05] MEDS: PROTONIX IV SCH (06:04)
[2018-05-05] MEDS: HUMULIN R SUBQ SCH ×4 (06:04→20:29)
--- NOTE | 2018-05-05 07:36 | Diag Imaging Result Doc PS360 ---
CHEST-1 VIEW - 05/05/2018 INDICATION: SOB COMPARISON: 05/04/2018 FINDINGS: The nasogastric tube has been removed. Stable sternotomy wires. Stable cardiomegaly and pulmonary vascular congestion. Stable heterogeneous infiltrates bilaterally which may represent pulmonary edema. There are trace pleural effusions. IMPRESSION: Nasogastric tube removed, otherwise no change from prior. Electronically signed by Ry Mederos 05/05/2018 7:34 AM
[2018-05-05] MEDS: LOVENOX SUBQ SCH ×2 (08:55→20:26)
[2018-05-05] MEDS: ROCEPHIN 2 GM in NS 50 ML IV SCH ×2 (08:55→20:26)
[2018-05-05] MEDS: VITAMIN D PO SCH (09:02)
--- NOTE | 2018-05-05 10:13 | PROGRESS NOTE ---
DATE: 05/05/2018 SUBJECTIVE: Mr. Mahmood is in the bed in sitting up mode. He was asleep as I approached the bedside and quickly alert after I called his name. He reports no new problems. He denies headache. Nothing new neurologically. His global encephalopathy continues to slowly resolve. There is baseline cognitive impairment and that will slow resolution of encephalopathy. No suggestions from Neurology today. cc: Florentino Hook III, MD [facility]
--- NOTE | 2018-05-05 12:12 | PROGRESS NOTE ---
DATE: 05/05/2018 SUBJECTIVE: Patient is resting in bed. He seemed to be doing better. However, he is still somewhat confused. OBJECTIVE: Vital Signs: Temperature 98.8 degrees, pulse 69, respiratory rate 22, blood pressure 139/58, and oxygen saturation is 99%. HEENT: Atraumatic and normocephalic. Cardiovascular: S1, S2. Respiratory: There is evidence of good air entry bilaterally. Abdomen: Soft and nontender. No masses felt. Extremities: No evidence of edema. Central nervous system: The patient is awake and alert. No obvious focal deficits. LABORATORY DATA: WBC 16.38, hematocrit is 38.2 with a platelet count of 463,000. ABG 7.51/31/75/99.2%. Chemistry: Sodium 136, potassium 3.9, chloride 105, bicarb 21, creatinine 0.3. X-ray of chest shows stable heterogeneous infiltrates bilaterally which may represent pulmonary edema. ASSESSMENT AND PLAN: 1. Acute respiratory failure secondary to pneumonia as well as acute pulmonary edema. Treat primary lung conditions and supplement with oxygen. 2. Sepsis secondary to pneumonia. Continue antibiotics. 3. Bacteremia secondary to strep pneumonia. Continue antibiotics. 4. Encephalopathy. Improving. 5. Hypernatremia, resolved. 6. Paroxysmal atrial fibrillation. Continue rate controlling agent as well as anticoagulation. 7. COPD. Use nebulized bronchodilators as needed. 8. Hypocalcemia probably related to vitamin D deficiency. Continue vitamin D replacement. 9. Deconditioning. Recommend PT. 10. Deep vein thrombosis prophylaxis. Lovenox. 11. Gastrointestinal prophylaxis. Proton pump inhibitor. 12. Disposition: I would like to keep patient in the unit for the next week 24 to 48 hours, and if he remains stable he can be transferred to a step-down unit. cc: Rich Leonardo MD [facility]
--- NOTE | 2018-05-05 13:08 | Extremity Venous Study ---
PROCEDURE NAME: Venous U/S Bilateral Legs - 05/03/2018 PROCEDURE: Bilateral lower extremity venous ultrasound. CONCRETE BUCKET HOOKER: Davin. REQUESTING PHYSICIAN: Hospitalist. INDICATION: Pneumonia. FINDINGS: The deep and superficial veins in bilateral lower extremities visualized along their course. All vessels appear compressible with forward flow with no evidence of intraluminal thrombus. SUMMARY: No deep or superficial venous thrombosis seen in bilateral lower extremities. cc: MD Rich Oakes MD
--- NOTE | 2018-05-05 15:35 | INFECTIOUS DISEASE PROGRESS NO ---
DATE: 05/05/2018 PRESENT ILLNESS: The patient has pneumococcal pneumonia with an associated bacteremia. MEDICATIONS: This is day 4 of treatment with Rocephin with day 1 being the first day that the patient's blood cultures are sterile. PHYSICAL EXAMINATION: Vital Signs: Temperature is 99 degrees, pulse 72, blood pressure 128/62. General: This is a chronically ill-appearing, elderly male. He is in no acute distress. HEAD, EYES, EARS, NOSE AND THROAT: There is no drainage from the nose or the ears. He does not have any white patches on his tongue.Neck: No stiffness. Lungs: Clear to auscultation. Cardiovascular: Heart rate is regular. Abdomen: Soft and nontender. Neurologic: The patient is awake. He did follow some requests such as moving his extremities. There is no tremor. LAB AND X-RAY: Chest x-ray shows pulmonary edema. The patient's creatinine is 0.3, GFR is greater than 60. AST is 38. The blood gases show a pH of 7.51, a pO2 of 75, and a pCO2 of 31. CBC shows a white count of 16,380, hemoglobin 12.3, and platelet count 463,000. ASSESSMENT AND PLAN: The patient is being treated for pneumococcal pneumonia and an associated bacteremia. This is day 4 of treatment with Rocephin. The patient will require 10 more days for completion. COMORBIDITIES: The patient is elderly. He smokes cigarettes and he has chronic obstructive pulmonary disease and encephalopathy. cc: Stephen Kaminski MD
[2018-05-06] MEDS: XOPENEX NEB INH SCH ×4 (03:06→22:06)
[2018-05-06] MEDS: POTASSIUM CHLORIDE 10 MEQ in D5W 1,000 ML IV SCH (04:33)
[2018-05-06 04:55] LABS: ALLEN TEST YES; BE -0.8 mmoll (-3.0-3.0); BLOOD TYPE ARTERIAL; HCO3-(ACT) 24.3 mmoll (20.0-26.0); PCO2(98.6) 29 mmHg (35-45); PO2(98.6) 73 mmHg (60-100); SAMPLE BLOOD; pH(98.6) 7.48 (7.35-7.45)
[2018-05-06 04:56] LABS: MODALITY ROOM AIR
[2018-05-06] MEDS: HUMULIN R SUBQ SCH ×4 (06:09→20:01)
[2018-05-06] MEDS: PROTONIX IV SCH (06:10)
[2018-05-06 06:11] LABS: BASO# 0.02 X1000 (0.0-0.2); BASO% 0.2 % (0.0-0.8); EOS# 0.06 X1000 (0.0-0.7); EOS% 0.5 % (0.0-10.0); HEMATOCRIT 31.7 % (42.0-52.0); HEMOGLOBIN 10.1 g/dL (14.0-18.0); IMM GRAN# 0.46 X1000 (0.0-0.04); IMM GRAN% 3.7 % (0.0-0.5); LYMPH# 1.64 X1000 (1.2-3.4); LYMPH% 13.3 % (20.5-51.1); MCH 31.9 PG (27-31); MCHC 31.9 g/dL (33-37); MONO# 1.15 X1000 (0.11-0.59); MONO% 9.3 % (1.7-9.3); MPV 11.1 FL (7.4-10.4); NEUT# 8.98 X1000 (1.4-6.5); PLT 517 X1000 (130-400); RBC 3.17 XMIL (4.7-6.1); RDW 13.7 % (11.5-14.5); WBC 12.31 X1000 (4.8-10.8)
[2018-05-06 06:45] LABS: AGAP 8; BUN 6 mg/dL (8-22); CALCIUM 8.2 mg/dL (8.8-10.2); CHLORIDE 104 mmol/L (98-107); COSMO 266; CREATININE 0.3 mg/dL (0.7-1.2); ESTIMATED GFR > 60; GLUCOSE 98 mg/dL (70-104); SODIUM 134 mmol/L (136-145); TCO2 22 mmol/L (25-35)
--- NOTE | 2018-05-06 08:07 | Diag Imaging Result Doc PS360 ---
CHEST-1 VIEW - 05/06/2018 INDICATION: SOB COMPARISON: 05/05/2018 FINDINGS: Stable sternotomy wires. Stable borderline cardiomegaly. There has been decrease in the background interstitial infiltrates/pulmonary edema. Stable patchy opacities in the right midlung and left lung base. IMPRESSION: Improvement in the background interstitial pulmonary edema. Electronically signed by Ry Mederos 05/06/2018 8:04 AM
[2018-05-06] MEDS: ROCEPHIN 2 GM in NS 50 ML IV SCH ×2 (08:23→20:00)
[2018-05-06] MEDS: LOVENOX SUBQ SCH ×2 (08:23→20:00)
[2018-05-06] MEDS: VITAMIN D PO SCH (08:34)
[2018-05-06] MEDS: DILAUDID IV PRN ×2 (10:06→19:58)
--- NOTE | 2018-05-06 14:46 | PULMONOLOGY PROGRESS NOTE ---
DATE: 05/06/2018 SUBJECTIVE: The patient is awake. He responds to questions, but in a slightly delayed fashion. He has no increased work of breathing. OBJECTIVE: Vital Signs: The patient has been afebrile for the last 24 hours. Blood pressure 127/59, heart rate 72, respiratory rate 19, oxygen saturation 99%. HEENT: Pupils are equal and reactive. Oropharynx is clear. Neck: Supple. Chest: Reveals shallow breath sounds bilaterally. Cardiac: S1, S2. Abdomen: Soft. Extremities: Are without edema. LABORATORIES: Chest x-ray reveals some decreased interstitial prominence. White blood count 12.3, hemoglobin 10.1, platelet count 517,000. Arterial blood gas on room air, pH 7.48, pCO2 of 29, PO2 of 73. IMPRESSION: 67-year-old with COPD, pneumococcal pneumonia, ongoing tobacco use, pneumococcal bacteremia, with metabolic encephalopathy. RECOMMENDATION: 1. Continue antibiotics to complete course as outlined per Infectious Disease. 2. Continue bronchial hygiene. 3. Encourage p.o. intake. 4. Discontinue D5W. Patient was hypernatremic, but is now hyponatremic. cc: Angel Junior MD
[2018-05-06] MEDS: CLINIMIX E 4.25%-5% SOLUTION 1,000 ML IV SCH (14:49)
--- NOTE | 2018-05-06 15:02 | PROGRESS NOTE ---
DATE: 05/06/2018 SUBJECTIVE: The patient's brother notes that he is doing a lot better. His color is better. States he has been fatigued for the last several months, but overall today does appear to be improved from yesterday. PHYSICAL EXAM: Vital Signs: Temperature 97.9, pulse 72, respiratory 18, BP 127/59. General: Patient is awake. He is in no current distress. HEENT: Normocephalic. Neck: Supple. CV: Regular rate. No murmurs. Chest: Clear, nonlabored, although decreased breath sounds equal bilaterally. No crackles. Abdomen: Soft, nondistended. Extremities: Moves all extremities. ASSESSMENT: 1. Paroxysmal atrial fibrillation. Currently he is in sinus rhythm and is off intravenous Cardizem. 2. Acute respiratory failure secondary to pneumonia. Continues to improve. 3. Pneumonia. 4. Sepsis, secondary to pneumonia, improved. 5. Bacteremia secondary to Streptococcus pneumoniae. 6. Hypernatremia. Sodium is improved to 134. 7. Chronic obstructive pulmonary disease. 8. Hypercapnic respiratory failure. 9. Hypocalcemia. PLAN: Overall, patient has improved. Due to his somnolence, we will leave him in the ICU today. If this improves, he can transition to the floor. We will continue current treatment and follow. cc: Maulik Rodriguez MD
[2018-05-07] MEDS: CLINIMIX E 4.25%-5% SOLUTION 1,000 ML IV SCH ×2 (03:23→16:40)
[2018-05-07] MEDS: XOPENEX NEB INH SCH ×4 (04:08→22:47)
[2018-05-07 04:52] LABS: BLOOD TYPE ARTERIAL; MODALITY ROOM AIR; SAMPLE BLOOD
[2018-05-07 04:53] LABS: pH(98.6) 7.54 (7.35-7.45)
[2018-05-07 04:54] LABS: HCO3-(ACT) 21.5 mmoll (20.0-26.0); PCO2(98.6) 25 mmHg (35-45); PO2(98.6) 131 mmHg (60-100)
[2018-05-07 04:55] LABS: THB 9.9 g/dL (11.5-17.4)
[2018-05-07 04:56] LABS: ALLEN TEST YES
[2018-05-07] MEDS: HUMULIN R SUBQ SCH ×4 (06:16→21:09)
[2018-05-07] MEDS: PROTONIX IV SCH (06:28)
--- NOTE | 2018-05-07 07:48 | Diag Imaging Result Doc PS360 ---
CHEST-1 VIEW - 05/07/2018 INDICATION: SOB COMPARISON: 05/06/2018 FINDINGS: Stable patchy interstitial infiltrates primarily in the lung bases. Stable cardiomegaly and pulmonary vascular congestion. No significant pleural effusion. IMPRESSION: No change from prior. Electronically signed by Ry Mederos 05/07/2018 7:46 AM
[2018-05-07] MEDS: ROCEPHIN 2 GM in NS 50 ML IV SCH ×2 (09:02→21:07)
[2018-05-07] MEDS: VITAMIN D PO SCH (09:02)
[2018-05-07] MEDS: DILAUDID IV PRN ×3 (09:02→21:50)
[2018-05-07] MEDS: LOVENOX SUBQ SCH ×2 (09:02→21:07)
--- NOTE | 2018-05-07 12:44 | PULMONOLOGY PROGRESS NOTE ---
DATE: 05/07/2018 SUBJECTIVE: The patient reports "okay" when asked how he is doing. He is slow to respond. He has no increased work of breathing. OBJECTIVE: Vital Signs: The patient has been afebrile for the last 24 hours. Blood pressure 124/59, heart rate 79, respiratory rate 16, oxygen saturation 97% on room air. HEENT: Pupils are equal and reactive. Oropharynx appears clear. Neck: Supple. Chest: Reveals rhonchi bilaterally. Cardiac: S1, S2. Abdomen: Soft. Extremities: Without edema. DIAGNOSTIC STUDIES: Arterial blood gas on room air reveals a pH 7.54, pCO2 of 25, PO2 of 131. No chemistries or CBC. The chest x-ray reveals infiltrates, right greater than left base, which are unchanged. IMPRESSION: A 67-year-old with: 1. Chronic obstructive pulmonary disease (COPD). 2. Pneumococcal pneumonia. 3. Ongoing tobacco use. 4. Encephalopathy with slow improvement. RECOMMENDATION: 1. Complete antibiotics as outlined per Infectious Disease. The patient had bacteremia and will be on an extended course of antibiotics. 2. Continue bronchial hygiene. 3. Encourage p.o. intake. 4. Follow up chemistries and CBC tomorrow morning. cc: MD Rich Arenas MD
--- NOTE | 2018-05-07 13:48 | INFECTIOUS DISEASE PROGRESS NO ---
DATE: 05/07/2018 PRESENT ILLNESS: The patient has pneumococcal pneumonia with an associated bacteremia. MEDICATIONS: This is the sixth day of treatment with Rocephin. PHYSICAL EXAMINATION: Vital Signs: Temperature is 98.4 degrees, pulse 85, respirations 34, blood pressure 103/58. General: This is a somewhat ill-appearing, elderly male. He is in no acute distress. HEENT: He can hear my spoken words and see near objects. There is not any white coating of his tongue. Neck: No meningismus. Lungs: Clear to auscultation. Cardiovascular: Heart rate is regular. Abdomen: Soft and nontender. Neurologic: The patient is awake. He talks very slowly. He can move his extremities. There is no tremor. IMAGING AND LABORATORY DATA: Chest x-ray shows bibasilar infiltrates. CBC shows a white count of 12,310, hemoglobin 10.1, and platelet count 517,000. Blood gases show a pH of 7.54, PO2 of 131, pCO2 of 25, creatinine is 0.3, GFR is greater than 60. ASSESSMENT AND PLAN: The patient has pneumococcal pneumonia with bacteremia. My plan is to treat with Rocephin for 8 more days. COMORBIDITIES: He is elderly and smokes cigarettes. He has chronic obstructive pulmonary disease and encephalopathy. cc: MD Rich Scott MD
--- NOTE | 2018-05-07 15:34 | PROGRESS NOTE ---
DATE: 05/05/2018 SUBJECTIVE: Patient resting on bed. Not in any obvious distress. OBJECTIVE: Vital signs: Temperature 98.1 degrees, pulse 96, respiration 22, blood pressure 104/59, oxygen saturation 100%. HEENT: Normocephalic. Cardiovascular: S1, S2. Respiratory: Has evidence of good air entry bilaterally. Abdomen: Soft, nontender, no masses felt. Extremities: No evidence of edema. Central nervous system: No obvious focal deficit noted. LABORATORY DATA: ABG 7.5/25/131/ 99 percent. X-ray of chest shows patchy interstitial infiltrate primary lung bases. Stable cardiomegaly and pulmonary vascular congestion. ASSESSMENT AND PLAN: 1. Acute respiratory failure secondary to pneumonia as well as acute pulmonary edema. Treat primary lung conditions, supplement with oxygen. 2. Sepsis secondary to pneumonia. Continue antibiotics. 3. Bacteremia secondary to strep pneumonia. Continue antibiotics. 4. Encephalopathy improving . 5. Hyperglycemia resolved. Will discontinue hypotonic fluids. 6. Paroxysmal atrial fibrillation. Continue rate controlling agent as well as anticoagulation. 7. Chronic obstructive pulmonary disease . Use nebulized bronchodilator as needed. 8. Hypocalcemia likely related to vitamin D deficiency, continue vitamin D replacement. 9. Deconditioning, recommend PT. 10. Deep vein thrombosis prophylaxis Lovenox. 11. Gastrointestinal prophylaxis PPI. cc: Rich Leonardo MD
[2018-05-08] MEDS: XOPENEX NEB INH SCH ×4 (03:40→22:20)
[2018-05-08 04:24] LABS: ALLEN TEST YES; BE 0.8 mmoll (-3.0-3.0); BLOOD TYPE ARTERIAL; HCO3-(ACT) 25.5 mmoll (20.0-26.0); METHB 0.7 % (0.0-1.5); MODALITY ROOM AIR; O2(CT) 15.2 mL/dL (15.0-23.0); O2HB 95.5 % (95.0-99.0); PCO2(98.6) 32 mmHg (35-45); PO2(98.6) 79 mmHg (60-100); SAMPLE BLOOD; SAO2 97.3 % (95.0-100.0); THB 11.3 g/dL (11.5-17.4); pH(98.6) 7.48 (7.35-7.45)
[2018-05-08] MEDS: PROTONIX IV SCH (06:06)
[2018-05-08] MEDS: CLINIMIX E 4.25%-5% SOLUTION 1,000 ML IV SCH ×2 (06:08→21:30)
[2018-05-08] MEDS: HUMULIN R SUBQ SCH ×4 (06:08→20:10)
--- NOTE | 2018-05-08 07:42 | Diag Imaging Result Doc PS360 ---
CHEST-1 VIEW - 05/08/2018 INDICATION: SOB COMPARISON: 05/07/2018 FINDINGS: Lung volumes are lower. Stable sternotomy wires. Stable cardiomegaly and pulmonary vascular congestion. There is slight worsening in atelectasis or effusion at the lateral right lung base. Otherwise stable hazy interstitial infiltrates suggesting pulmonary edema. IMPRESSION: Lower lung volumes. Worsening atelectasis or effusion at the lateral right lung base. Electronically signed by Ry Mederos 05/08/2018 7:40 AM
[2018-05-08] MEDS: LOVENOX SUBQ SCH ×2 (08:10→20:11)
[2018-05-08] MEDS: VITAMIN D PO SCH (08:10)
[2018-05-08] MEDS: ROCEPHIN 2 GM in NS 50 ML IV SCH ×2 (08:10→20:11)
--- NOTE | 2018-05-08 08:20 | INFECTIOUS DISEASE PROGRESS NO ---
DATE: 05/08/2018 PRESENT ILLNESS: The patient has pneumococcal pneumonia with an associated bacteremia. MEDICATION: The patient has been on Rocephin now for 7 days. PHYSICAL EXAMINATION: Vital Signs: Temperature is 97.9 degrees, pulse 71, respirations 17, blood pressure 105/53. General: This is an ill-appearing elderly male. He is in no acute distress. Head/eyes/ears/nose/throat: He can hear my spoken words and see near objects. He does not have any white coating on his tongue. His tongue is dry. Lungs: Clear to auscultation. Cardiovascular: Heart rate is regular. Occasionally there are premature beats. Abdomen: Soft and nontender. Neurologic: The patient is lethargic. He did follow request to move his extremities. He does not have a tremor. LABORATORY AND RADIOLOGY: The patient's blood gases show a pH of 7.48, a PO2 of 79, and a pCO2 of 32. There is no other new laboratory than the blood gases. A chest x-ray for today shows worsening atelectasis or effusion in the lateral right lung base. There also are lower lung volumes. ASSESSMENT AND PLAN: 1. The patient has pneumococcal pneumonia with an associated bacteremia. I plan to continue Rocephin for 7 more days. 2. Comorbidities: The patient is elderly. He smokes cigarettes. He has COPD and encephalopathy. cc: Stephen Kaminski MD
[2018-05-08 10:49] LABS: BASO# 0.02 X1000 (0.0-0.2); BASO% 0.2 % (0.0-0.8); EOS# 0.06 X1000 (0.0-0.7); EOS% 0.5 % (0.0-10.0); HEMOGLOBIN 10.2 g/dL (14.0-18.0); IMM GRAN# 0.19 X1000 (0.0-0.04); IMM GRAN% 1.7 % (0.0-0.5); LYMPH# 1.47 X1000 (1.2-3.4); LYMPH% 13.3 % (20.5-51.1); MCH 32.2 PG (27-31); MCHC 31.9 g/dL (33-37); MCV 100.9 FL (81-99); MONO# 1.09 X1000 (0.11-0.59); MONO% 9.9 % (1.7-9.3); MPV 9.7 FL (7.4-10.4); NEUT# 8.19 X1000 (1.4-6.5); NEUT% 74.4 % (42.2-75.2); PLT 585 X1000 (130-400); RBC 3.17 XMIL (4.7-6.1); RDW 13.9 % (11.5-14.5); WBC 11.02 X1000 (4.8-10.8)
--- NOTE | 2018-05-08 11:09 | PULMONOLOGY PROGRESS NOTE ---
DATE: 05/08/2018 SUBJECTIVE: The patient is awake and alert and significantly more conversant than yesterday. He has a good cough effort which is relatively dry. OBJECTIVE: Vitals: The patient has been afebrile for the last 24 hours. Blood pressure 104/62, heart rate 94, respiratory rate 22, oxygen saturation 99% on room air. HEENT: Pupils are equal and reactive. Oropharynx appears clear. Neck: Supple. Chest: Reveals prolonged expiratory phase. Cardiac: S1-S2. Abdomen: Soft. Extremities: Reveal no edema. LABORATORIES/IMAGING: Chest x-ray reveals shallow infiltrates with small effusions at the right base. Chemistries: No chemistries or CBC this morning, but to have been ordered. Arterial blood gas: PH 7.48, pCO2 32, PO2 of 79. IMPRESSION: A 67-year-old with: 1. Chronic obstructive pulmonary disease. 2. Pneumococcal pneumonia. 3. Ongoing tobacco use. 4. Encephalopathy with improvement. RECOMMENDATION: 1. Continue antibiotics as outlined per Infectious Disease for pneumococcal bacteremia. 2. Continue bronchial hygiene. 3. Encourage p.o. intake. 4. Evaluate chemistries and CBC when available. cc: Angel Junior MD
[2018-05-08 11:10] LABS: AGAP 9; ALBUMIN 2.6 g/dL (3.5-5.0); ALKALINE PHOSPHATASE 89 U/L (32-122); BUN 15 mg/dL (8-22); CALCIUM 8.6 mg/dL (8.8-10.2); CHLORIDE 105 mmol/L (98-107); COSMO 273; CREATININE 0.4 mg/dL (0.7-1.2); ESTIMATED GFR > 60; GLUCOSE 95 mg/dL (70-104); GOT 36 U/L (10-34); GPT 45 U/L (10-44); MAGNESIUM 1.9 mg/dL (1.5-2.7); PHOSPHORUS 3.8 mg/dL (2.7-4.5); POTASSIUM 4.2 mmol/L (3.5-5.1); SODIUM 136 mmol/L (136-145); TCO2 22 mmol/L (25-35); TOTAL BILIRUBIN 0.18 mg/dL (0.20-1.00); TOTAL PROTEIN 5.3 g/dL (6.3-8.3)
--- NOTE | 2018-05-08 13:55 | PROGRESS NOTE ---
DATE: 05/08/2018 SUBJECTIVE: Resting comfortable in bed. Not in any obvious distress. No new complaints today. OBJECTIVE: Vital signs: Temperature is 98.6 degrees, pulse 89, respirations 20, blood pressure 115/58, oxygenation 99%. HEENT: Atraumatic, normocephalic. Cardiovascular: S1, S2. Respiratory system: Has evidence of good air entry bilaterally. Abdomen: Soft, nontender. No masses felt. Extremities: No evidence of edema. Central nervous system: No obvious focal deficit noted. LABORATORY DATA: X-ray chest shows low lung volumes, worsening atelectasis or effusion lateral right lung base. WBC 7.02, hematocrit is 32.0 with a platelet count of 585,000. ABG 7.48/52/79/97.3%. Sodium 136, potassium 4.2, chloride is 105, bicarb 22, BUN 15, creatinine 0.4. AST is 60, ALT 45. ASSESSMENT AND PLAN: 1. Acute respiratory failure secondary to pneumonia as well as acute pulmonary edema. Treat primary lung conditions. Supplement the patient's oxygen. 2. Sepsis secondary to pneumonia. Continue antibiotics. 3. Bacteremia secondary to strep pneumonia. Continue antibiotics. 4. Encephalopathy, improving. 5. Hypernatremia, resolved. 6. Paroxysmal atrial fibrillation. Continue rate controlling agent as well as anticoagulation. 7. Chronic obstructive pulmonary disease. Continue nebulized bronchodilators as needed. 8. Hypocalcemia related to vitamin D deficiency. Continue vitamin D replacement. 9. Deconditioning. Physical therapy recommended. 10. Deep vein thrombosis prophylaxis. Lovenox. 11. Gastrointestinal prophylaxis. Proton pump inhibitor. 12. Disposition. The patient can be transferred today to a step-down unit. cc: Rich Leonardo MD
[2018-05-08] MEDS: DILAUDID IV PRN ×3 (14:09→22:55)
[2018-05-08] MEDS ORDERED: TYLENOL PO PRN (15:46)
[2018-05-09] MEDS: DILAUDID IV PRN ×5 (03:24→20:56)
[2018-05-09] MEDS: XOPENEX NEB INH SCH ×4 (04:00→22:55)
[2018-05-09] MEDS: HUMULIN R SUBQ SCH ×4 (06:18→21:00)
[2018-05-09] MEDS: PROTONIX IV SCH (06:34)
[2018-05-09] MEDS: LOVENOX SUBQ SCH ×2 (08:49→20:56)
[2018-05-09] MEDS: VITAMIN D PO SCH (08:50)
[2018-05-09] MEDS: ROCEPHIN 2 GM in NS 50 ML IV SCH ×2 (08:53→20:56)
--- NOTE | 2018-05-09 11:39 | PROGRESS NOTE ---
DATE: 05/09/2018 SUBJECTIVE: Patient resting in bed. Not in any obvious distress. Somewhat confused this morning. OBJECTIVE: Vital signs: Temperature 98.4 degrees, pulse 78, respiratory rate 16, blood pressure 149/61, oxygen saturation is 99%. HEENT: Atraumatic, normocephalic. Cardiovascular system: S1, S2. Respiratory system: Has evidence of good air entry bilaterally. Abdomen: Soft, nontender. No masses felt. Extremities: No evidence of edema. Central nervous system: No obvious focal deficit. LABORATORY DATA: Blood sugar is 101. ASSESSMENT AND PLAN: 1. Acute respiratory failure secondary to pneumonia as well as acute pulmonary edema. Continue to treat her primary lung conditions. Supplement with oxygen. 2. Bacteremia secondary to streptococcal pneumonia/pneumonia. Antibiotic management per Infectious Disease team. 3. Encephalopathy, improved, but patient is still confused. Primary etiology of encephalopathy is likely infectious. 4. Hypernatremia. Resolved. 5. Paroxysmal atrial fibrillation. Continue rate-controlling agent as well as anticoagulation. 6. Chronic obstructive pulmonary disease (COPD). Continue nebulized bronchodilators as needed. 7. Hypocalcemia related to vitamin D deficiency. Continue vitamin D replacement. 8. Deconditioning. Physical therapy recommended. 9. Deep vein thrombosis (DVT) prophylaxis. Lovenox. 10. Gastrointestinal (GI) prophylaxis. PPI. DISPOSITION: The plan is for the patient to be transferred to a [place] [facility] facility when medically stable. cc: Rich Leonardo MD
[2018-05-09] MEDS: OFIRMEV 1000 MG/ISOTONIC SOLN 1,000 MG/100 ML BOTTLE IV PRN ×2 (14:35→20:08)
[2018-05-09] MEDS: CLINIMIX E 4.25%-5% SOLUTION 1,000 ML IV SCH (15:03)
[2018-05-10] MEDS: DILAUDID IV PRN ×6 (00:51→23:24)
[2018-05-10] MEDS: XOPENEX NEB INH SCH ×2 (03:40→10:40)
[2018-05-10] MEDS: SODIUM CHLORIDE 0.9% INJ SCH (06:32)
[2018-05-10] MEDS: HUMULIN R SUBQ SCH ×2 (06:33→11:48)
[2018-05-10] MEDS: PROTONIX IV SCH (06:33)
[2018-05-10 07:02] LABS: BASO# 0.02 X1000 (0.0-0.2); BASO% 0.3 % (0.0-0.8); EOS# 0.08 X1000 (0.0-0.7); HEMATOCRIT 33.4 % (42.0-52.0); HEMOGLOBIN 10.6 g/dL (14.0-18.0); IMM GRAN# 0.11 X1000 (0.0-0.04); IMM GRAN% 1.4 % (0.0-0.5); LYMPH# 1.79 X1000 (1.2-3.4); LYMPH% 22.9 % (20.5-51.1); MCH 31.8 PG (27-31); MCHC 31.7 g/dL (33-37); MCV 100.3 FL (81-99); MONO# 0.98 X1000 (0.11-0.59); MONO% 12.5 % (1.7-9.3); MPV 10.4 FL (7.4-10.4); NEUT# 4.84 X1000 (1.4-6.5); NEUT% 61.9 % (42.2-75.2); PLT 687 X1000 (130-400); RBC 3.33 XMIL (4.7-6.1); RDW 13.5 % (11.5-14.5); WBC 7.82 X1000 (4.8-10.8)
[2018-05-10 07:15] LABS: AGAP 11; ALB/GLOB RATIO 0.9; ALBUMIN 2.9 g/dL (3.5-5.0); ALKALINE PHOSPHATASE 91 U/L (32-122); BUN 13 mg/dL (8-22); CALCIUM 8.8 mg/dL (8.8-10.2); CHLORIDE 103 mmol/L (98-107); COSMO 271; CREATININE 0.3 mg/dL (0.7-1.2); ESTIMATED GFR > 60; GLUCOSE 87 mg/dL (70-104); GOT 34 U/L (10-34); GPT 42 U/L (10-44); POTASSIUM 3.9 mmol/L (3.5-5.1); SODIUM 136 mmol/L (136-145); TCO2 22 mmol/L (25-35); TOTAL BILIRUBIN 0.23 mg/dL (0.20-1.00); TOTAL PROTEIN 6.2 g/dL (6.3-8.3)
[2018-05-10] MEDS: ROCEPHIN 2 GM in NS 50 ML IV SCH ×2 (08:43→20:12)
[2018-05-10] MEDS: VITAMIN D PO SCH ×2 (08:43→08:48)
[2018-05-10] MEDS: LOVENOX SUBQ SCH (08:43)
--- NOTE | 2018-05-10 09:57 | PROGRESS NOTE ---
DATE: 05/10/2018 Mr. Mahmood is supine, awake and alert, much brighter than when I last saw him. He spontaneously extended his hand for a handshake as I approached the bedside, before I spoke. He reports no headache, no other specific problems and reports his only desire is to "get out of here." I do not have any new thoughts or new suggestions from neurology standpoint today. Thanks for asking us to see Mr. Mahmood. cc: MD VIOLET Cabrales III
[2018-05-10] MEDS: CLINIMIX E 4.25%-5% SOLUTION 1,000 ML IV SCH ×2 (10:31→11:46)
[2018-05-10] MEDS ORDERED: LASIX IV ONE (13:23)
--- NOTE | 2018-05-10 14:06 | PROGRESS NOTE ---
DATE: 05/10/2018 INTERVAL HISTORY: The patient was stressed out in his room as his neighbor was shouting and talking loudly on phone and was experiencing sharp chest pain. He was transferred to another room and his chest pain had resolved. SUBJECTIVE: He appears awake and alert. He is following simple commands. The patient's brother is at bedside. The patient denies any more chest pain, palpitation, shortness of breath. The rhythm at bedside monitor appears normal sinus rhythm. VITAL SIGNS: Temperature 98.7 degrees, pulse 81, respiratory rate 16, blood pressure 129/60, saturating 100% on room air. PHYSICAL EXAMINATION: General: He does not appear in any acute distress. HEENT: Oral cavity is moist. There is a pool of saliva. Lungs: Air entry appears bilaterally equal on limited physical examination except mild crackles bilateral bases. No wheeze or rhonchi. Cardiovascular: S1, S2 normal. Regular. No murmur, rub, or gallop. Abdomen: Scaphoid, nontender. Extremity: No lower extremity edema. Neurologic: He is alert. He is oriented to place and person. He is able to follow simple commands though he does have slow responses. He is able to wiggle toes on all extremities. He is able to lift left upper extremity above ground level but not the right and appears to have slight weakness of the right shoulder as compared to left. He also appears to have left-sided facial droop which appears positional. He has a scar of sternotomy over his chest. 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 LABS: Suggestive of macrocytic anemia with stable hemoglobin, hematocrit, thrombocytosis, normal electrolytes and normal kidney function. Microbiology first set of negative blood culture was 05/01/2018. IMAGING: Brain MRI in the past had suggested chronic ischemic changes and chronic encephalomalacia affecting temporal and adjacent occipital lobe. Chest x-ray suggested lower lung volumes with some atelectasis and effusion at the lateral right lung base. ASSESSMENT AND PLAN: 1. Acute respiratory failure secondary to pneumonia and acute pulmonary edema, now resolved. The patient is breathing well on room air. 2. Sepsis due to streptococcal pneumonia. First set of blood culture negative was May 01. The patient is on intravenous ceftriaxone, which he would need at current dose. Last dose being on 05/14/2018. Infectious Disease on board. 3. Acute encephalopathy likely a combination of prior history of cerebrovascular accident. Current sepsis, now improving. Neurology on board. Brain MRI had chronic encephalomalacia affecting left side temporal and occipital lobe without acute abnormality. 4. Paroxysmal atrial fibrillation requiring intravenous diltiazem. He is off intravenous diltiazem. Continue him on enoxaparin for primary CVA prophylaxis. His current rhythm appears to be sinus on bedside monitor. He is not on any rate control medication at the moment considering his heart rate is well controlled. 5. Biprosthetic aortic valve, heart failure with preserved ejection fraction, CAD s/p CABG (2017): Stable. Continue eliquis and lasix. He is not listed to be taking aspirin or statin. I would advice him to follow up with his regular doctor about this. 5. Nutrition. The patient encephalopathy appears to be is resolving. He is being evaluated by speech therapy and currently on mechanical soft diet. I will stop Clinimix tomorrow if he continues to have good p.o. intake. 6. Deep venous thrombosis prophylaxis on Lovenox, which I will change the time of discharge to Eliquis. 7. Other issues hypernatremia, chronic obstructive pulmonary disease, hypocalcemia with vitamin D deficiency, physical deconditioning are stable. I am continuing his home medications. Physical therapy. DISPOSITION: 1. The patient agrees to go to rehab. Social work rehab consult has been placed. He needs additional 4 days of intravenous antibiotics. If the rehab is able to give him through peripheral IV line, I would avoid getting a PICC line. If not, we would get him a PICC line and whenever the bed becomes available, we can discharge him. I am anticipating discharge in the next 24 to 48 hours. 2. Plan of care were discussed with the patient's brother and patient at bedside. All of the questions have been answered thank you. cc: Jeramie Paul MD [facility]
[2018-05-10] MEDS: PROSCAR PO SCH (14:55)
--- NOTE | 2018-05-10 15:29 | INFECTIOUS DISEASE PROGRESS NO ---
DATE: 05/10/2018 PRESENT ILLNESS: Mr. Mahmood has a pneumococcal bacteremia as well as a pneumonia which has improved. MEDICATIONS: He is receiving Rocephin 2 g IV every 12 hours. Based on his sterile blood cultures, today is day 9 of treatment. PHYSICAL EXAMINATION: Vital Signs: Temperature is 98.7 degrees, pulse rate 81, respiratory rate 16, blood pressure 129/60, O2 saturation is 100% on room air. General: This is a chronically ill- appearing, elderly gentleman. He is lying in the bed, currently in no acute distress. HEENT: Atraumatic, normocephalic. Oral mucous membranes are pink and moist. Conjunctivae are pink. Neck: Has a decrease in suppleness to the right. Trachea is midline. Cardiovascular: Heart rate and rhythm are regular. Normal sinus rhythm on the monitor. Respiratory: Lung sounds are clear to auscultation in the upper lobes. Diminished in the bases. Abdomen: Soft, flat, and nontender. Bowel sounds are active. Neurologic: He is awake, alert, and slow on response to questions. However, he is appropriate and will follow commands. Infrequent verbalization. LABORATORY AND X-RAY: Today, his white count is 7.82, hemoglobin 10.6, platelet count 687,000. Creatinine is 0.3. Estimated GFR is greater than 60. Total bilirubin is 0.23, AST 34, ALT 42, alkaline phosphatase is 91. Blood cultures originally showed streptococcus pneumoniae, the most recent that have been sterile. No imaging reports today. ASSESSMENT AND PLAN: Mr. Mahmood has been treated for pneumococcal bacteremia. His pneumonia looks like it is clearing. He will require 5 more days of treatment for his bacteremia. We will continue Rocephin at this point. These plans have been discussed with and recommended by Dr. Kaminski. COMORBIDITIES: For Mr. Mahmood include that he is elderly, with cigarette smoking, COPD, and encephalopathy. Dictated by KAREN Lares for Stephen Kaminski MD This chart was documented by, KAREN Lares and accurately reflects the services performed, treatment plan and medical decisions as attested by the providers signature Stephen Kaminski MD. cc: Stephen Kaminski MD [facility]
[2018-05-10] MEDS: ATROVENT NEB INH SCH ×2 (15:52→21:14)
[2018-05-10] MEDS: ELIQUIS PO SCH (20:12)
[2018-05-10] MEDS ORDERED: TEGRETOL PO SCH (21:00)
--- NOTE | 2018-05-10 21:56 | PULMONOLOGY PROGRESS NOTE ---
DATE: 05/10/2018 SUBJECTIVE: The patient has moved to a new room. He is without specific complaints. He does respond to questions appropriately. He has limited p.o. intake. OBJECTIVE: The patient has been afebrile for the last 24 hours. Blood pressure 116/48, heart rate 104, respiratory rate 18, oxygen saturation 100% on 2 L per nasal cannula. HEENT: Pupils are equal and reactive. Oropharynx is clear. Neck is supple. Chest reveals crackles at the right base. Cardiac exam: S1, S2. Abdomen is soft with positive bowel sounds. Extremities are without edema. LABORATORY DATA: White blood count is now normal at 7.82, hemoglobin 10.6, platelet count 687,000. Chemistry: Sodium 136, potassium 3.9, chloride 103, bicarbonate 22, BUN 13, creatinine 0.3. IMPRESSION: A 67-year-old with: 1. Chronic obstructive pulmonary disease. 2. Pneumococcal pneumonia. 3. Encephalopathy, with continued improvement. 4. Ongoing tobacco use at time of admission. RECOMMENDATIONS: 1. Continue current bronchial hygiene. 2. Continue antibiotics, which is a prolonged course due to pneumococcal bacteremia. 3. Encourage p.o. intake. 4. Follow up chest x-ray tomorrow morning. cc: Angel Junior MD
[2018-05-11] MEDS: ATROVENT NEB INH SCH ×3 (03:27→16:22)
--- NOTE | 2018-05-11 06:37 | Diag Imaging Result Doc PS360 ---
CHEST-PORTABLE - 05/11/2018 INDICATION: abnormal exam COMPARISON: 05/08/2018 FINDINGS: There has been significant improvement in the diffuse bilateral, predominantly basilar ill-defined infiltrates compatible with pulmonary edema. No large pleural effusion. Stable cardiomegaly. IMPRESSION: Significant improvement in the bilateral infiltrates most likely pulmonary edema. Electronically signed by Ry Mederos 05/11/2018 6:35 AM
[2018-05-11] MEDS ORDERED: PRILOSEC PO SCH (07:00)
[2018-05-11] MEDS ORDERED: LASIX PO SCH (09:00)
[2018-05-11] MEDS: VITAMIN D PO SCH (09:09)
[2018-05-11] MEDS: ROCEPHIN 2 GM in NS 50 ML IV SCH (09:09)
[2018-05-11] MEDS: PROSCAR PO SCH (09:10)
[2018-05-11] MEDS: ELIQUIS PO SCH (12:42)
--- NOTE | 2018-05-11 13:47 | PROGRESS NOTE ---
DATE: 05/11/2018 ADDENDUM: Please note that I called the patient's to inform her about the patient's clinical condition and discharge plan to rehab today. 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 cc: Jeramie Paul MD
--- NOTE | 2018-05-11 13:55 | DISCHARGE SUMMARY ---
ADMISSION DATE: 04/27/2018 DISCHARGE DATE: 05/11/2018 DISCHARGE DISPOSITION: Rehab facility. CODE STATUS: Do Not Resuscitate level 1. DISCHARGE DIAGNOSES: 1. Acute respiratory failure secondary to pneumonia and acute pulmonary edema leading to acute hypoxic respiratory failure. 2. Sepsis due to streptococcal pneumonia. 3. Acute encephalopathy in the setting of prior history of cerebrovascular accident and sepsis. 4. Paroxysmal atrial fibrillation requiring intravenous diltiazem during hospital admission. 5. History of a bioprosthetic aortic valve, heart failure with preserved ejection fraction, and coronary artery disease, status post coronary artery bypass graft in 2017. 6. Hypernatremia, vitamin D deficiency, and hypocalcemia. 7. Physical deconditioning. OTHER DIAGNOSES: 1. History of gastric bypass surgery. 2. History of bioprosthetic aortic valve. 3. History of heart failure with preserved ejection fraction. 4. History of chronic pain. 5. History of benign prostatic hypertrophy. CONSULTATION DURING HOSPITAL ADMISSION: Pulmonology, Dr. Dalton; infectious disease, Dr. Kaminski; neurology, Dr. Hook. DISCHARGE MEDICATIONS: 1. Ceftriaxone intravenous every 12 hours for a total of 8 doses after discharge through peripheral IV. 2. Apixaban 5 mg b.i.d. 3. Cyclobenzaprine 10 mg t.i.d. 4. Omeprazole 40 mg daily. 5. Finasteride 5 mg daily. 6. Vitamin D3 5000 units daily. 7. Ipratropium bromide 0.5 mg inhaled q.6 hours. 8. Tamsulosin 0.4 mg p.o. daily. 9. Iron, carbonyl, ascorbic acid 1 tablet daily. 10. Lasix 40 mg b.i.d. 11. Acetaminophen 650 mg p.o. q.6 hours p.r.n. for pain less than 7/10. 12. Tramadol 200 mg p.o. q.12 hours p.r.n. for pain more than 7/10. OTHER MEDICATIONS: Please note, the patient's carbamazepine at the dose of 200 mg at bedtime for suspected situational depression has been held, considering its interaction with his Eliquis. Add as tolerated. Please note, the patient's spironolactone 25 mg daily and metolazone 5 mg daily have been held as the patient did not appear in any respiratory distress. Please add them as tolerated. VITAL SIGNS: At the time of discharge, temperature 98.8 degrees, pulse 84, respiratory rate 18, blood pressure 110/60, saturating 99% on room air. PHYSICAL EXAMINATION: General: He does not appear in any acute distress. Oral cavity is dry. Lungs: Air entry bilaterally equal. No wheeze, rhonchi, crackles. Cardiovascular: S1, S2 normal. No murmur, rub, or gallop. It is regular. Abdomen: Scaphoid, nontender. No lower extremity edema. Neurologic: He was sleepy but arousable to strong verbal stimuli. He is oriented to himself and the place. He answers and follows simple commands like opening mouth and raising his arms above ground level. However, he appears very weak and lapses back into sleep. 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 SIGNIFICANT LABS DURING HOSPITAL ADMISSION: At discharge, his WBC count is 7.8, hemoglobin 10.6, platelets 687,000. He has normal electrolytes with a BUN of 13 and creatinine of 0.3. PERTINENT MICROBIOLOGICAL DATA: His blood culture was growing Streptococcus pneumoniae on April 27. Repeat blood culture on May 01 has not shown any growth. His influenza screen during hospitalization was negative. SIGNIFICANT IMAGING DURING HOSPITAL ADMISSION: Head CT on April 29 had chronic appearing changes without any acute abnormality. There was medial right occipital lobe encephalomalacia. Brain MRI on May 01 had chronic ischemic changes and right-sided medial cortex, and the posterior temporal lobe had an encephalomalacia with adjacent occipital lobe. Extremity venous study on May 03 did not detect any superficial or DVT. Neck MRA on May 01 had suggested atherosclerotic plaque formation in both proximal internal carotid arteries of up to only 50%, particularly the left. Chest x-ray on May 11 had significant improvement in the bilateral infiltrates, which was most likely related to pulmonary edema, after the dose of Lasix he was given. CARDIOVASCULAR IMAGIN. Electrocardiogram on April 27 had atrial flutter with a variable AV block. However, on April 29, it had sinus tachycardia with frequent PVCs. 2. Carotid Doppler study on April 30 had suggested right-sided stenosis of 40- 60% with left-sided stenosis of 0-40%. HOSPITAL COURSE SUMMARY: Mr. Mahmood is a 67-year-old, man with the above-mentioned past medical history, who came to the hospital on April 27 with complaints of altered mental status and severe shortness of breath and frequent falls. He was recently diagnosed with influenza prior to this hospitalization and was already treated with Tamiflu. However, after the influenza, the patient continued to decline and had started complaining of increasing shortness of breath, productive cough, and poor appetite. In the ER, he was found to be hypoxic with PO2 of 49 on ABG and he had right lower lobe pneumonia. He was admitted for fluid resuscitation, intravenous antibiotics. He was treated with intravenous antibiotics since his blood culture had positive Streptococcus pneumoniae. During hospital admission, his streptococcal pneumonia and streptococcal pneumoniae bacteria was taken care of with intravenous antibiotic. He should complete the remaining course of intravenous ceftriaxone. His acute hypoxic respiratory failure at the time of discharge had resolved and he was breathing well on room air. Acute encephalopathy. During hospital admission, he did have continued altered mental status and neurology was consulted. Brain MRI had suggested evidence of previous stroke. However, there was no acute abnormality. It is possible that he had baseline cognitive impairment which was made worse by current episode of sepsis. At the time of discharge, he was more awake than during remaining of the hospitalization. He was, at one point, able to interact and answer my questions when his family was around. The brain imaging did detect the right-sided temporal and occipital lobe encephalomalacia without any acute abnormalities. The patient was encouraged to eat his meals and participate in PT and OT. Paroxysmal atrial fibrillation. Paroxysmal atrial fibrillation required intravenous diltiazem which had converted to sinus rhythm and he did not require any more rate- controlling medication. He was continued on apixaban at the time of discharge for his primary CVA prophylaxis. He was also started back on his home dose of Lasix for his history of heart failure with preserved ejection fraction and coronary artery disease with history of CABG in the past. He should resume his metolazone as tolerated. He also had a bioprosthetic aortic valve without any acute issues. Nutrition. He required intravenous nutrition considering his acute encephalopathy. At the time of discharge, it was discontinued. REHABILITATION TEAM LEAD was consulted and patient was receiving mechanical soft diet. DISPOSITION: More than 30 minutes were spent in discharging this patient. The patient will be discharged to rehab. cc: MD VIOLET Pichardo
[2018-05-11 16:06] VITALS: BP 120/65
== END 2018-05-11 16:51 | DRG 871 ==
LOC: ED 16:08 → SUATTDRO 18:35 → ICU 18:35 → 4N 05-08 17:18
PROVIDERS: ATTEND Internal Medicine
CPT/HCPCS: 51702; 70450; 70547; 70551; 71010; 71045; 74000; 74018; 76000; 80048; 80053; 80069; 80202; 80307; 80320; 81001; 82055; 82140; 82306; 82330; 82533; 82550; 82553; 82784; 82805; 82948; 83036; 83605; 83690; 83735; 83880; 84100; 84132; 84436; 84439; 84443; 84484; 85025; 85610; 85730; 87040; 87077; 87088; 87186; 87275; 87276; 87804; 92610; 93005; 93010; 93880; 93970; 94640; 94761; 94762; 96361; 96365; 97110; 97162; 97166; 97530; 99285; A9270; C9113; G0480; G6040; J0131; J0610; J0692; J0696; J1170; J1650; J1940; J2020; J2060; J3370; J3480; J7030; J7040; J7050; J7070; P9047; S0138; S0164; XXXXX